=== PATIENT | female | born 1955 | race Caucasian/White ===

== ENCOUNTER 2019-07-24 10:33 | Day surgery (SDC) | payer MEDICARE, OTHER, SELFPAY ==
--- NOTE | 2019-07-24 | PATH_ITS ---
[facility] Accession Number: [id number] . 01 Material submitted: . PART A: colon - DESCENDING COLON POLYP PART B: colon - ASCENDING COLON POLYP PART C: colon - TRANSVERSE COLON POLYP PART D: rectosigmoid junction - RECTOSIGMOID COLON POLYP X3 . 01 Clinical history: . COLONOSCOPY . 02 Diagnosis: A. Descending Colon, Polyp: Tubular adenoma. . B. Ascending Colon, Polyp: Tubular adenoma. . C. Transverse Colon, Polyp: Hyperplastic polyp. . D. Rectosigmoid Colon, Polyps: Hyperplastic polyp x3. V 07/25/2019 1011 Local . 02 Electronically signed: . Gustavo Simental MD, PhD, Pathologist NPI- [id number] . 01 Gross description: . Part A: DESCENDING COLON POLYP: Received in formalin is 1 fragment(s) of ramírez, soft tissue measuring 0.5 x 0.4 x 0.3 cm submitted entirely in 1 cassette(s) Part B: ASCENDING COLON POLYP: Received in formalin is 1 fragment(s) of ramírez, soft tissue measuring 0.3 x 0.3 x 0.3 cm submitted entirely in 1 cassette(s) Part C: TRANSVERSE COLON POLYP: Received in formalin are 3 fragment(s) of ramírez, soft tissue measuring 0.1 x 0.1 x 0.1 cm to 0.2 x 0.1 x 0.1 cm submitted entirely in 1 cassette(s) Part D: RECTOSIGMOID COLON POLYP X3: Received in formalin are 3 fragment(s) of ramírez, soft tissue measuring 0.1 x 0.1 x 0.1 cm to 0.3 x 0.3 x 0.2 cm submitted entirely in 1 cassette(s) [place] [place]24/[place] 2233 Local . 02 Pathologist provided ICD-10: D12.2, D12.4, K63.5, K62.1 . 02 CPT . 153574, 703692, 436548, [id number] Performed at: 01 [facility] [address] [id number] MD Jorge Tovar MD Phone: [phone] Performed at: 02 [facility] [address] [place] [id number] MD Alicia Islas MD Phone: [phone]
--- NOTE | 2019-07-24 08:26 | PM.HP.1 ---
History of Present Illness History of Present Illness Date Patient Seen: 07/24/19 Chief complaint: 17384 COLONOSCOPY Narrative: Patient presented for colonoscopy. She does describe a family history of colon cancer in her father diagnosed at age 33. The patient describes personal history of colon polyps, last colonoscopy 5 years ago. Meds Home Medications and Allergies Home Medications Medication Instructions Recorded Confirmed Type Basaglar KwikPen U-100 Insulin 40 units SUBCUT BEDTIME 07/24/19 07/24/19 History atorvastatin 40 mg PO DAILY 07/24/19 07/24/19 History hydrochlorothiazide 25 mg PO DAILY 07/24/19 07/24/19 History lisinopril 10 mg PO DAILY 07/24/19 07/24/19 History potassium chloride [Klor-Con 10] 10 meq PO DAILY 07/24/19 07/24/19 History Allergies Allergy/AdvReac Type Severity Reaction Status Date / Time No Known Drug Allergies Allergy Verified 07/24/19 11:41 Review of Systems Review of Systems ROS Unobtainable: All systems reviewed & are unremarkable except as noted in HPI and below Exam Const General: cooperative, healthy appearing and comfortable Nutritional Appearance: obese Orientation: alert, awake and oriented x3 Resp Effort & Inspection: normal respiratory effort and able to speak in complete sentences Auscultation: clear to auscultation bilaterally Cardio Rate: regular rate Rhythm: regular rhythm Heart Sounds: S1 normal and S2 normal GI Palpation: soft and No tender Auscultation: normal bowel sounds Extrem Right lower extremity: no edema Left lower extremity: no edema Assessment & Plan Assessment & Plan narrative: 1. Screening colonoscopy at increased risk family history of colon cancer -father 2. Personal history of colon polyps Colonoscopy today, further recommendations to follow
[2019-07-24 11:46] VITALS: BP 121/71; PULSE 60; RESP 16; TEMP 36; O2SAT 99; BMI 31.8
[2019-07-24 12:01] VITALS: BMI 31.8
[2019-07-24] MEDS: SODIUM CHLORIDE 0.9% 1,000 ML 70 ML IV (12:02)
[2019-07-24] MEDS: fentaNYL 250 MCG/5 ML INJ IV (13:05)
[2019-07-24] MEDS: MIDAZOLAM 5 MG/5 ML VIAL IV (13:06)
[2019-07-24 13:15] VITALS: BP 117/60; PULSE 65; RESP 16; TEMP 36.3; O2SAT 99
--- NOTE | 2019-07-24 13:15 | PM.OP.ENDO ---
Operative Date/Time/Diagnoses Date of procedure: 07/24/19 Time of procedure: 12:45 Procedure Notes Procedure in detail: Surgeon: Najma Poon DO Procedure: Colonoscopy with polypectomy Preoperative diagnosis: 1. Personal history of colon polyps 2. Family history colon cancer -father dx 33 Postoperative diagnosis: 1. Ascending colon polyp 5 mm 2. Transverse colon polyp 2 mm 3. Descending colon polyp 5 mm 4. Rectosigmoid 3 colon polyps 2-3 mm in size 5. Internal hemorrhoids noted on retroflexion Medications: Conscious sedation using 5 mg IV of Midazolam and 150 mcg IV of Fentanyl Preanesthesia Assessment An H and P was performed/updated and the Px?s ASA class is 2. The procedure was discussed in detail with the patient. The potential risks and complications including infection, bleeding, missed lesions, perforation, need for surgery in case of perforation, prolonged hospital stay, and were explained. A brief question and answer period was allotted and once all questions were answered, informed consent was obtained. The patient was brought back to the procedure room and placed on standard monitoring. The patient?s vital signs were monitored continuously throughout the entire procedure. Prior to starting, a timeout was performed to confirm the patient?s identity, allergies, medications, and procedure. Procedure in detail The patient was placed in left lateral decubitus position and once adequate sedation was obtained a MARGARITA was performed. The digital rectal examination did not reveal any palpable lesions. The tip of the colonoscope was placed in the anal canal and advanced all the way to the cecum which was identified by the appendiceal orifice and the ileocecal valve. Colon was noted to be significantly tortuous and redundant, manual pressure, moving the patient to the supine position and stiffener were used to achieve visualization of the cecum. Careful examination of all gonzalez of the colon was performed with irrigation of any residual stool. 1. Ascending colon polyp 5 mm -removed with cold snare 2. Transverse colon polyp 2 mm -removed with Jumbo forceps 3. Descending colon polyp 5 mm -removed with cold snare 4. Rectosigmoid 3 colon polyps 2-3 mm in size -removed with Jumbo forceps 5. Internal hemorrhoids noted on retroflexion The patient tolerated the procedure well and will be brought back to the recovery area to be discharged once criteria are met. The prep was judged to be good/excellent and adequate to identify polyps less than 5 mm. The withdrawal time was 8min. The total physician intraservice time was 25min. Complications There were no complications and estimated blood loss was minimal. Recommendations: Resume previous diet Continue outPx medications Follow up pathology results Repeat colonoscopy based on pathology results 3-5 years An emergency contact number was given to the patient for any complications related to the procedure
[2019-07-24 13:28] VITALS: BP 114/71; PULSE 66; RESP 17; TEMP 36.4; O2SAT 100
== END 2019-07-24 13:46 | disposition home or self-care (01) ==
PROVIDERS: Visit Provider Student in an Organized Health Care Education/Training Program
PROC: 0DJD8ZZ Inspection of Lower Intestinal Tract, Via Natural or Artificial Opening Endoscopic (ICD-10-PCS; CPT 45378; principal; 2019-07-24 11:30)
DX: Z12.11 Encounter for screening for malignant neoplasm of colon (principal); Z86.010 Personal history of colon polyps; Z80.0 Family history of malignant neoplasm of digestive organs; K64.8 Other hemorrhoids; D12.4 Benign neoplasm of descending colon; D12.2 Benign neoplasm of ascending colon; K63.5 Polyp of colon; K62.1 Rectal polyp
CPT/HCPCS: 45385; 45380; J2250; J3010

== ENCOUNTER 2023-02-13 06:09 | Emergency (ER) | payer MEDICARE, OTHER, SELFPAY ==
[2023-02-13] VITALS (7 sets, daily range): BP systolic 142–175; BP diastolic 64–75; PULSE 64–99; RESP 18–24; TEMP 36.9; O2SAT 97–100; BMI 28.5
[2023-02-13] MEDS: ONDANSETRON 4 MG/2 ML INJ IV (06:41)
[2023-02-13] MEDS: SODIUM CHLORIDE 0.9% 1,000 ML 1000 ML IV ×2 (06:42→07:33)
[2023-02-13 06:43] LABS: Add Manual Diff / Slide Review NO; Basophils Absolute Auto 0 /uL (0-100); Basophils Percent Auto 0.3 % (0-2); Eosinophils Absolute Auto 0 /uL (0-450); Hematocrit 39.2 % (36-46); Hemoglobin 13.7 g/dL (12.0-16.0); Lymphocytes Absolute Auto 1200 /uL (1100-4500); Lymphocytes Percent Auto 8.3 % (25-40); Mean Corpuscular HGB Conc 34.8 % (30-36); Mean Corpuscular Hemoglobin 29.8 PG (26-34); Mean Corpuscular Volume 85.7 fL (80-100); Monocytes Absolute Auto 1000 /uL (0-900); Monocytes Percent Auto 7.4 % (3-14); Neutrophils Absolute Auto 11900 /uL (1500-7000); Platelet Count 251 X10^3/uL (150-400); Red Blood Cell Count 4.58 X10^6/uL (4.0-5.2); Red Cell Distribution Width 13.6 % (11.6-14.8); White Blood Cell Count 14.2 X10^3/uL (4.5-11.0)
--- NOTE | 2023-02-13 06:43 | ED_ITS ---
HPI - Abdominal Pain <DO Martin Wang Last Filed: 02/14/23 07:00> General Chief Complaint: Abdominal Pain Stated Complaint: dry heaving, dedydrated Time Seen by Provider: 02/13/23 06:38 Source: patient Mode of arrival: Ambulatory History of Present Illness HPI narrative: Patient is 67-year-old female history of insulin-dependent diabetes presenting today with 2 days of nausea vomiting. She reports it started about 2 days ago she is really been unable to keep anything down. She has some mild abdominal cr amping but no significant pain. No dizziness or lightheadedness. She reports that her sugars are elevated for her and today it is 178. She has generalized body aches fever and chills. No chest pain palpitations or shortness of breath. Related Data Home Medications Medication Instructions Recorded Confirmed Basaglar KwikPen U-100 Insulin 40 units SUBCUT BEDTIME 07/24/19 07/24/19 atorvastatin 40 mg tablet 40 mg PO DAILY 07/24/19 07/24/19 hydrochlorothiazide 25 mg tablet 25 mg PO DAILY 07/24/19 07/24/19 lisinopril 10 mg tablet 10 mg PO DAILY 07/24/19 07/24/19 potassium chloride 10 mEq 10 meq PO DAILY 07/24/19 07/24/19 tablet,extended release (Klor-Con) Previous Rx's Medication Instructions Recorded metoclopramide HCl 10 mg tablet 10 mg PO Q6H PRN nausea and 02/13/23 (Reglan) vomiting #14 tabs Allergies Allergy/AdvReac Type Severity Reaction Status Date / Time No Known Drug Allergies Allergy Verified 02/13/23 06:24 Review of Systems <DO Martin Wang Last Filed: 02/14/23 07:00> Review of Systems ROS Unobtainable: All systems reviewed & are unremarkable except as noted in HPI and below Patient History <DO Martin Wang Last Filed: 02/14/23 07:00> Social History household members: spouse Smoking Status: Never smoker Smoking Status: Never smoker alcohol intake frequency: 0-2 drinks per day Substance Use Type: does not use Exam <DO Martin Wang Last Filed: 02/14/23 07:00> Initial Vital Signs Initial Vital Signs: Vital Signs Temperature 98.4 F 02/13/23 06:20 Pulse Rate 74 02/13/23 06:20 Respiratory Rate 24 02/13/23 06:20 Blood Pressure 175/75 H 02/13/23 06:20 Pulse Oximetry 99 02/13/23 06:20 Oxygen Delivery Method Room Air 02/13/23 06:20 GENERAL: Alert 67-year-old female appears uncomfortable dry heaving and in no acute distress. HEENT: Head atraumatic,EOMI, pupils reactive, face symmetric, moist mucous membranes CARDIOVASCULAR: Regular rate and rhythm without murmurs, rubs or gallops. RESPIRATORY: Breath sounds equal bilaterally, no wheezes rales or rhonchi. ABDOMEN: Soft, no epigastric pain no right upper quadrant pain no guarding no re bound EXTREMITIES: Normal range of motion, no clubbing or edema. Neurovascularly intact NEUROLOGICAL: Alert and oriented x4.Normal gait and speech. SKIN: Warm, dry, no laceration, no petechiae, no rashes or lesions. <Samuel Arita DO - Last Filed: 02/13/23 09:09> Initial Vital Signs Initial Vital Signs: Vital Signs Temperature 98.4 F 02/13/23 06:20 Pulse Rate 74 02/13/23 06:20 Respiratory Rate 24 02/13/23 06:20 Blood Pressure 175/75 H 02/13/23 06:20 Pulse Oximetry 99 02/13/23 06:20 Oxygen Delivery Method Room Air 02/13/23 06:20 Course <Carolyn Gallardo, DO - Last Filed: 02/14/23 07:00> Orders Ordered: Discontinued Medications Sodium Chloride (Normal Saline 0.9%) 1,000 mls @ 1,000 mls/hr IV BOLUS ONE Stop: 02/13/23 07:37 Last Infusion: 02/13/23 07:18 Dose: 0 mls/hr Documented By: Admin: 02/13/23 06:42 Dose: 1,000 mls/hr Documented By: REZA Sodium Chloride (Normal Saline 0.9%) 1,000 mls @ 1,000 mls/hr IV BOLUS ONE Stop: 02/13/23 07:40 Last Infusion: 02/13/23 08:53 Dose: 0 mls/hr Documented By: Admin: 02/13/23 07:33 Dose: 1,000 mls/hr Documented By: DEBI Metoclopramide HCl (Metoclopramide 10 Mg/2 Ml Inj) 10 mg IV NOW ONE Stop: 02/13/23 07:26 Last Admin: 02/13/23 07:33 Dose: 10 mg Documented By: DEBI Ondansetron HCl (Ondansetron 4 Mg Odt) 4 mg PO NOW PRN PRN Reason: Nausea And Vomiting Ondansetron HCl (Ondansetron 4 Mg/2 Ml Inj) 4 mg IV NOW PRN PRN Reason: Nausea And Vomiting Last Admin: 02/13/23 06:41 Dose: 4 mg Documented By: REZA Pantoprazole Sodium (Pantoprazole 40 Mg Vial) 40 mg IV NOW ONE Stop: 02/13/23 06:43 Last Admin: 02/13/23 06:50 Dose: 40 mg Documented By: REZA Vital Signs Vital signs: Vital Signs - 8 hr 02/13/23 06:20 02/13/23 07:03 02/13/23 07:30 Temperature 98.4 F Pulse Rate 74 64 99 H Respiratory Rate 24 Blood Pressure 175/75 H Pulse Oximetry 99 99 100 Oxygen Delivery Method Room Air Room Air 02/13/23 08:00 Temperature Pulse Rate 67 Respiratory Rate Blood Pressure Pulse Oximetry 97 Oxygen Delivery Method <Samuel Arita DO - Last Filed: 02/13/23 09:09> Orders Ordered: Discontinued Medications Sodium Chloride (Normal Saline 0.9%) 1,000 mls @ 1,000 mls/hr IV BOLUS ONE Stop: 02/13/23 07:37 Last Infusion: 02/13/23 07:18 Dose: 0 mls/hr Documented By: Admin: 02/13/23 06:42 Dose: 1,000 mls/hr Documented By: REZA Sodium Chloride (Normal Saline 0.9%) 1,000 mls @ 1,000 mls/hr IV BOLUS ONE Stop: 02/13/23 07:40 Last Infusion: 02/13/23 08:53 Dose: 0 mls/hr Documented By: Admin: 02/13/23 07:33 Dose: 1,000 mls/hr Documented By: DEBI Metoclopramide HCl (Metoclopramide 10 Mg/2 Ml Inj) 10 mg IV NOW ONE Stop: 02/13/23 07:26 Last Admin: 02/13/23 07:33 Dose: 10 mg Documented By: DEBI Ondansetron HCl (Ondansetron 4 Mg Odt) 4 mg PO NOW PRN PRN Reason: Nausea And Vomiting Ondansetron HCl (Ondansetron 4 Mg/2 Ml Inj) 4 mg IV NOW PRN PRN Reason: Nausea And Vomiting Last Admin: 02/13/23 06:41 Dose: 4 mg Documented By: REZA Pantoprazole Sodium (Pantoprazole 40 Mg Vial) 40 mg IV NOW ONE Stop: 02/13/23 06:43 Last Admin: 02/13/23 06:50 Dose: 40 mg Documented By: REZA Vital Signs Vital signs: Vital Signs - 8 hr 02/13/23 06:20 02/13/23 07:03 02/13/23 07:30 Temperature 98.4 F Pulse Rate 74 64 99 H Respiratory Rate 24 Blood Pressure 175/75 H Pulse Oximetry 99 99 100 Oxygen Delivery Method Room Air Room Air 02/13/23 08:00 Temperature Pulse Rate 67 Respiratory Rate Blood Pressure Pulse Oximetry 97 Oxygen Delivery Method MDM - Abdominal Pain <Carolyn Gallardo DO - Last Filed: 02/14/23 07:00> Lab Data 02/13/23 06:28 02/13/23 06:28 Labs: Lab Results 02/13/23 02/13/23 02/13/23 Range/Units 06:28 06:28 06:28 WBC 14.2 H (4.5-11.0) X10^3/uL RBC 4.58 (4.0-5.2) X10^6/uL Hgb 13.7 (12.0-16.0) g/dL Hct 39.2 (36-46) % MCV 85.7 (80-100) fL MCH 29.8 (26-34) PG MCHC 34.8 (30-36) % RDW 13.6 (11.6-14.8) % Plt Count 251 (150-400) X10^3/uL Neut % (Auto) 84.0 H (50-75) % Lymph % (Auto) 8.3 L (25-40) % [place] % (Auto) 7.4 (3-14) % Eos % (Auto) 0.0 L (2-4) % Baso % (Auto) 0.3 (0-2) % Neut # (Auto) 29038 H (7386-2504) /uL Lymph # (Auto) 1200 (6677-1056) /uL [place] # (Auto) 1000 H (0-900) /uL Eos # (Auto) 0 (0-450) /uL Baso # (Auto) 0 (0-100) /uL Sodium 134 L (137-145) mmol/L Potassium 3.0 L (3.4-5.1) mmol/L Chloride 92 L (98-107) mmol/L Carbon Dioxide 30 (22-32) mmol/L BUN 31 H (7-17) mg/dL Creatinine 1.44 H (0.52-1.04) mg/dL Estimated GFR 39 L (>60) mL/min BUN/Creatinine Ratio 21.5 (6-22) Glucose 177 H (80-110) mg/dL Lactate 1.5 (0.7-2.1) mmol/L Calcium 10.4 H (8.4-10.2) mg/dL Total Bilirubin 1.2 (0.2-1.3) mg/dL AST 29 (14-36) IU/L ALT 22 (<35) IU/L Alkaline Phosphatase 74 (38-126) U/L Total Protein 7.9 (6.3-8.2) g/dL Albumin 4.5 (3.5-5.0) g/dL Globulin 3.4 (1.7-4.1) g/dL Albumin/Globulin Ratio 1.3 (1.0-2.8) Lipase 184 (23-300) U/L [facility] Narrative Medical decision making narrative: Patient 67-year-old female insulin-dependent diabetes presenting today with nausea vomiting. Did initial evaluation blood work pending. Patient signed out to Dr. Arita for further disposition and evaluation Patient with some improvement but not very much after the Zofran and a L fluids but she states she feels much better after the Reglan and a 2nd L of fluids. Labs are relatively unremarkable and most likely related to her vomiting. There was no indication for antibiotics. No indication for further radiologic studies. Patient is tolerating oral intake. Will discharge home with a prescription for Reglan. She was given return precautions. She expressed understanding and agreement. <Samuel Arita, DO - Last Filed: 02/13/23 09:09> Lab Data Attestation: I reviewed the patient's lab results. Labs: Lab Results 02/13/23 02/13/23 02/13/23 Range/Units 06:28 06:28 06:28 WBC 14.2 H (4.5-11.0) X10^3/uL RBC 4.58 (4.0-5.2) X10^6/uL Hgb 13.7 (12.0-16.0) g/dL Hct 39.2 (36-46) % MCV 85.7 (80-100) fL MCH 29.8 (26-34) PG MCHC 34.8 (30-36) % RDW 13.6 (11.6-14.8) % Plt Count 251 (150-400) X10^3/uL Neut % (Auto) 84.0 H (50-75) % Lymph % (Auto) 8.3 L (25-40) % [place] % (Auto) 7.4 (3-14) % Eos % (Auto) 0.0 L (2-4) % Baso % (Auto) 0.3 (0-2) % Neut # (Auto) 27246 H (8151-9869) /uL Lymph # (Auto) 1200 (7542-3404) /uL [place] # (Auto) 1000 H (0-900) /uL Eos # (Auto) 0 (0-450) /uL Baso # (Auto) 0 (0-100) /uL Sodium 134 L (137-145) mmol/L Potassium 3.0 L (3.4-5.1) mmol/L Chloride 92 L (98-107) mmol/L Carbon Dioxide 30 (22-32) mmol/L BUN 31 H (7-17) mg/dL Creatinine 1.44 H (0.52-1.04) mg/dL Estimated GFR 39 L (>60) mL/min BUN/Creatinine Ratio 21.5 (6-22) Glucose 177 H (80-110) mg/dL Lactate 1.5 (0.7-2.1) mmol/L Calcium 10.4 H (8.4-10.2) mg/dL Total Bilirubin 1.2 (0.2-1.3) mg/dL AST 29 (14-36) IU/L ALT 22 (<35) IU/L Alkaline Phosphatase 74 (38-126) U/L Total Protein 7.9 (6.3-8.2) g/dL Albumin 4.5 (3.5-5.0) g/dL Globulin 3.4 (1.7-4.1) g/dL Albumin/Globulin Ratio 1.3 (1.0-2.8) Lipase 184 (23-300) U/L ECG Data Attestation: I personally reviewed and interpreted this ECG as follows: Interpretation: Sinus rhythm Ventricular rate is 62 on normal axis Right bundle-branch block Nonspecific ST T wave changes MDM Narrative Medical decision making narrative: Patient with some improvement but not very much after the Zofran and a L fluids but she states she feels much better after the Reglan and a 2nd L of fluids. Labs are relatively unremarkable and most likely related to her vomiting. There was no indication for antibiotics. No indication for further radiologic studies. Patient is tolerating oral intake. Will discharge home with a prescription for Reglan. She was given return precautions. She expressed understanding and agreement. Discharge Plan Departure Patient Disposition: Home Clinical Impression: Nausea and vomiting Instructions: Nausea and Vomiting-Adult Activity Restrictions/Additional Instructions: Continue to take all of your medications as directed. The nausea medication was sent to [facility] per your request. You can use it as needed. I also recommend that you eat a bland diet. Increase your fluid intake by drinking small amounts more frequently. Return to the emergency department for new or worsening symptoms. Prescriptions: New metoclopramide HCl [Reglan] 10 mg tablet 10 mg PO Q6H PRN (Reason: nausea and vomiting) Qty: 14 0RF No Action atorvastatin 40 mg Tablet 40 mg PO DAILY potassium chloride [Klor-Con 10] 10 mEq Tablet Extended Release 10 meq PO DAILY lisinopril 10 mg Tablet 10 mg PO DAILY hydrochlorothiazide 25 mg Tablet 25 mg PO DAILY Ricardo Garcia U-100 Insulin 40 units 40 units subcut BEDTIME Stand Alone Forms: Patient Portal/API
[2023-02-13] MEDS: PANTOPRAZOLE 40 MG VIAL IV (06:50)
[2023-02-13 07:04] LABS: Alanine Aminotransferase 22 IU/L (<35); Albumin 4.5 g/dL (3.5-5.0); Albumin Globulin Ratio 1.3 (1.0-2.8); Alkaline Phosphatase 74 U/L (38-126); Aspartate Aminotransferase 29 IU/L (14-36); BUN Creatinine Ratio 21.5 (6-22); Bilirubin Total 1.2 mg/dL (0.2-1.3); Blood Urea Nitrogen 31 mg/dL (7-17); Calcium 10.4 mg/dL (8.4-10.2); Carbon Dioxide 30 mmol/L (22-32); Chloride 92 mmol/L (98-107); Estimated Glomerular Filt Rate 39 mL/min (>60); Globulin 3.4 g/dL (1.7-4.1); Glucose 177 mg/dL (80-110); HEMOLYSIS < 15 (0-50); Lipase 184 U/L (23-300); Sodium 134 mmol/L (137-145); Total Protein 7.9 g/dL (6.3-8.2)
[2023-02-13 07:12] LABS: Lactate (Lactic Acid) 1.5 mmol/L (0.7-2.1)
[2023-02-13] MEDS: METOCLOPRAMIDE 10 MG/2 ML INJ IV (07:33)
== END 2023-02-13 09:22 | disposition home or self-care (01) ==
PROVIDERS: Emergency Medicine; Emergency Provider Emergency Medicine
DX: R11.2 Nausea with vomiting, unspecified (principal); R10.9 Unspecified abdominal pain
CPT/HCPCS: 36415; 80053; 83605; 83690; 85025; 93005; 93010; 99284; C9113; J2405; J2765

== ENCOUNTER 2023-02-14 06:50 | Emergency (ER) | payer MEDICARE, OTHER, SELFPAY ==
[2023-02-14] VITALS (16 sets, daily range): BP systolic 142–202; BP diastolic 57–109; PULSE 57–69; RESP 18–22; TEMP 37.3; O2SAT 94–99; BMI 27.6
--- NOTE | 2023-02-14 07:16 | ED_ITS ---
HPI - Nausea/Vomiting/Diarrhea General Chief complaint: Nausea/Vomiting/Diarrhea Stated complaint: dehydration, vomiting Time Seen by Provider: 02/14/23 06:58 Source: patient Mode of arrival: Wheelchair History of Present Illness HPI Narrative: Patient is a 67-year-old female history of hypertension insulin-dependent diabetes hyperlipidemia presenting for the 2nd day in a row with nausea vomiting. She reports over the last 3-4 days she is had ongoing nausea vomiting unable to keep anything down. She was seen evaluated here yesterday diagnosed with gastroenteritis sent with antinausea medication he returns today it. She reports she just can not keep anything down despite the medication. He feels a little dizzy lightheaded. She is no abdominal pain no chest pain or shortness of breath. Related Data Home Medications Medication Instructions Recorded Confirmed Basaglar KwikPen U-100 Insulin 40 units SUBCUT BEDTIME 07/24/19 07/24/19 atorvastatin 40 mg tablet 40 mg PO DAILY 07/24/19 02/14/23 hydrochlorothiazide 25 mg tablet 25 mg PO DAILY 07/24/19 02/14/23 lisinopril 10 mg tablet 10 mg PO DAILY 07/24/19 02/14/23 potassium chloride 10 mEq 10 meq PO DAILY 07/24/19 02/14/23 tablet,extended release (Klor-Con) Previous Rx's Medication Instructions Recorded metoclopramide HCl 10 mg tablet 10 mg PO Q6H PRN nausea and 02/13/23 (Reglan) vomiting #14 tabs ondansetron 4 mg disintegrating 4 mg PO Q8H PRN nausea and 02/14/23 tablet vomiting #10 tabs Allergies Allergy/AdvReac Type Severity Reaction Status Date / Time No Known Drug Allergies Allergy Verified 02/13/23 06:24 Review of Systems Review of Systems ROS Unobtainable: All systems reviewed & are unremarkable except as noted in HPI and below Patient History Social History household members: spouse Smoking Status: Never smoker Smoking Status: Never smoker alcohol intake frequency: 0-2 drinks per day Substance Use Type: does not use Exam Initial Vital Signs Initial Vital Signs: Vital Signs Temperature 99.1 F 02/14/23 06:59 Pulse Rate 66 02/14/23 06:59 Respiratory Rate 18 02/14/23 06:59 Blood Pressure 196/87 H 02/14/23 06:59 Pulse Oximetry 94 02/14/23 06:59 Oxygen Delivery Method Room Air 02/14/23 06:59 GENERAL: Alert 67-year-old female appears to not feel well and in no acute distress. HEENT: Head atraumatic,EOMI, pupils reactive, face symmetric, moist mucous membranes CARDIOVASCULAR: Regular rate and rhythm without murmurs, rubs or gallops. RESPIRATORY: Breath sounds equal bilaterally, no wheezes rales or rhonchi. ABDOMEN: Soft, nontender. Normoactive bowel sounds all 4 quadrants. No guarding or rebound. EXTREMITIES: Normal range of motion, no clubbing or edema. Neurovascularly intact NEUROLOGICAL: Alert and oriented x4.Normal gait and speech. SKIN: Warm, dry, no laceration, no petechiae, no rashes or lesions. Course Orders Ordered: ED Orders 02/14/23 06:55 CBC Auto Diff [Complete Blood Count AUTO DIFF] Stat CMP [Comprehensive Metabolic Panel] Stat Lactate (Lactic Acid) Stat Lipase Stat Troponin & CK Cardiac Panel Stat 02/14/23 07:08 EKG-12 Lead Stat 02/14/23 09:05 Trop I [Troponin I] Stat 02/14/23 09:31 EKG-12 Lead Routine 02/14/23 10:11 Urine Culture Stat Urine Microscopic Stat Discontinued Medications Hydrochlorothiazide (Hydrochlorothiazide 25 Mg Tablet) 25 mg PO NOW ONE Stop: 02/14/23 09:21 Last Admin: 02/14/23 09:25 Dose: 25 mg Documented By: RB Sodium Chloride (Normal Saline 0.9%) 1,000 mls @ 1,000 mls/hr IV BOLUS ONE Stop: 02/14/23 08:07 Last Infusion: 02/14/23 08:34 Dose: 0 mls/hr Documented By: Admin: 02/14/23 07:17 Dose: 1,000 mls/hr Documented By: OUSMANE Sodium Chloride (Normal Saline 0.9%) 1,000 mls @ 1,000 mls/hr IV BOLUS ONE Stop: 02/14/23 09:33 Last Infusion: 02/14/23 09:35 Dose: 0 mls/hr Documented By: Admin: 02/14/23 08:46 Dose: 1,000 mls/hr Documented By: RB Lisinopril (Lisinopril 10 Mg Tablet) 10 mg PO NOW ONE Stop: 02/14/23 09:21 Last Admin: 02/14/23 09:26 Dose: 10 mg Documented By: JAMIA Ondansetron HCl (Ondansetron 4 Mg/2 Ml Inj) 4 mg IV NOW ONE Stop: 02/14/23 07:09 Last Admin: 02/14/23 07:17 Dose: 4 mg Documented By: OUSMANE Ondansetron HCl (Ondansetron 4 Mg/2 Ml Inj) 4 mg IV NOW ONE Stop: 02/14/23 08:43 Last Admin: 02/14/23 08:46 Dose: 4 mg Documented By: JAMIA Pantoprazole Sodium (Pantoprazole 40 Mg Vial) 40 mg IV NOW ONE Stop: 02/14/23 07:09 Last Admin: 02/14/23 07:18 Dose: 40 mg Documented By: OUSMANE Vital Signs Vital signs: Vital Signs - 8 hr 02/14/23 06:59 02/14/23 07:03 02/14/23 07:30 Temperature 99.1 F Pulse Rate 66 61 59 L Respiratory Rate 18 19 Blood Pressure 196/87 H Pulse Oximetry 94 97 97 Oxygen Delivery Method Room Air 02/14/23 08:00 02/14/23 08:15 02/14/23 08:15 Temperature Pulse Rate 64 58 L Respiratory Rate 19 19 Blood Pressure 197/79 H Pulse Oximetry 98 97 Oxygen Delivery Method 02/14/23 08:30 02/14/23 08:30 02/14/23 08:45 Temperature Pulse Rate 62 Respiratory Rate 21 Blood Pressure 176/79 H 177/78 H Pulse Oximetry 97 Oxygen Delivery Method 02/14/23 08:45 02/14/23 09:00 02/14/23 09:01 Temperature Pulse Rate 61 68 Respiratory Rate 20 Blood Pressure 142/109 H Pulse Oximetry 98 98 Oxygen Delivery Method 02/14/23 09:01 02/14/23 09:16 02/14/23 09:16 Temperature Pulse Rate 69 60 Respiratory Rate 20 19 Blood Pressure 202/82 H Pulse Oximetry 99 98 Oxygen Delivery Method 02/14/23 09:26 02/14/23 09:30 02/14/23 09:31 Temperature Pulse Rate 62 62 61 Respiratory Rate 22 20 Blood Pressure 202/82 H Pulse Oximetry 98 97 Oxygen Delivery Method 02/14/23 09:31 02/14/23 09:45 02/14/23 09:45 Temperature Pulse Rate 61 Respiratory Rate 21 Blood Pressure 192/82 H 184/73 H Pulse Oximetry 97 Oxygen Delivery Method 02/14/23 10:00 02/14/23 10:00 02/14/23 11:11 Temperature Pulse Rate 57 L 59 L Respiratory Rate 18 20 Blood Pressure 168/57 H 162/58 H Pulse Oximetry 96 98 Oxygen Delivery Method Room Air MDM - Nausea/Vomiting/Diarrhea Lab Data 02/14/23 06:55 02/14/23 06:55 Labs: Lab Results 02/14/23 02/14/23 02/14/23 Range/Units 06:55 06:55 06:55 WBC 8.9 (4.5-11.0) X10^3/uL RBC 4.21 (4.0-5.2) X10^6/uL Hgb 12.8 (12.0-16.0) g/dL Hct 36.4 (36-46) % MCV 86.5 (80-100) fL MCH 30.3 (26-34) PG MCHC 35.1 (30-36) % RDW 13.5 (11.6-14.8) % Plt Count 212 (150-400) X10^3/uL Neut % (Auto) 70.6 (50-75) % Lymph % (Auto) 19.2 L (25-40) % [place] % (Auto) 9.9 (3-14) % Eos % (Auto) 0.0 L (2-4) % Baso % (Auto) 0.3 (0-2) % Neut # (Auto) 6300 (9456-2833) /uL Lymph # (Auto) 1700 (8377-2975) /uL [place] # (Auto) 900 (0-900) /uL Eos # (Auto) 0 (0-450) /uL Baso # (Auto) 0 (0-100) /uL Sodium (137-145) mmol/L Potassium (3.4-5.1) mmol/L Chloride (98-107) mmol/L Carbon Dioxide (22-32) mmol/L BUN (7-17) mg/dL Creatinine (0.52-1.04) mg/dL Estimated GFR (>60) mL/min BUN/Creatinine Ratio (6-22) Glucose (80-110) mg/dL Lactate 1.3 (0.7-2.1) mmol/L Calcium (8.4-10.2) mg/dL Total Bilirubin (0.2-1.3) mg/dL AST (14-36) IU/L ALT (<35) IU/L Alkaline Phosphatase (38-126) U/L Total Creatine Kinase 260 H (30-135) U/L CK-MB (CK-2) TNP CK-MB (CK-2) Rel Index TNP Troponin I 0.039 H (0.01-0.034) ng/mL Total Protein (6.3-8.2) g/dL Albumin (3.5-5.0) g/dL Globulin (1.7-4.1) g/dL Albumin/Globulin Ratio (1.0-2.8) Lipase (23-300) U/L Urine RBC (0-5/HPF) Urine WBC (0-5/HPF) Ur Squamous Epith Cells (0-5/HPF) Urine Bacteria (None) Ur Culture Indicated? 02/14/23 02/14/23 02/14/23 Range/Units 06:55 09:05 10:11 WBC (4.5-11.0) X10^3/uL RBC (4.0-5.2) X10^6/uL Hgb (12.0-16.0) g/dL Hct (36-46) % MCV (80-100) fL MCH (26-34) PG MCHC (30-36) % RDW (11.6-14.8) % Plt Count (150-400) X10^3/uL Neut % (Auto) (50-75) % Lymph % (Auto) (25-40) % [place] % (Auto) (3-14) % Eos % (Auto) (2-4) % Baso % (Auto) (0-2) % Neut # (Auto) (6395-6800) /uL Lymph # (Auto) (8241-4170) /uL [place] # (Auto) (0-900) /uL Eos # (Auto) (0-450) /uL Baso # (Auto) (0-100) /uL Sodium 134 L (137-145) mmol/L Potassium 3.2 L (3.4-5.1) mmol/L Chloride 98 (98-107) mmol/L Carbon Dioxide 27 (22-32) mmol/L BUN 26 H (7-17) mg/dL Creatinine 1.30 H (0.52-1.04) mg/dL Estimated GFR 45 L (>60) mL/min BUN/Creatinine Ratio 20.0 (6-22) Glucose 148 H (80-110) mg/dL Lactate (0.7-2.1) mmol/L Calcium 9.0 (8.4-10.2) mg/dL Total Bilirubin 1.0 (0.2-1.3) mg/dL AST 28 (14-36) IU/L ALT 20 (<35) IU/L Alkaline Phosphatase 62 (38-126) U/L Total Creatine Kinase (30-135) U/L CK-MB (CK-2) CK-MB (CK-2) Rel Index Troponin I 0.034 (0.01-0.034) ng/mL Total Protein 6.7 (6.3-8.2) g/dL Albumin 4.0 (3.5-5.0) g/dL Globulin 2.7 (1.7-4.1) g/dL Albumin/Globulin Ratio 1.5 (1.0-2.8) Lipase 235 (23-300) U/L Urine RBC 0-1/hpf (0-5/HPF) Urine WBC 1-5/hpf (0-5/HPF) Ur Squamous Epith Cells 0-1 /hpf (0-5/HPF) Urine Bacteria Occasional (0-1) (None) Ur Culture Indicated? Specimen cultured Urine Dip Bedside Urine Glucose 100 mg/dl Bedside Urine Bilirubin - Negative Bedside Urine Ketone - Negative Urine Specific [place] 1.015 Bedside Urine Occult Blood +/- Bedside Urine pH 6.5 Bedside Urine Protein - Negative Bedside Urine Urobilinogen - Negative Bedside Urine Nitrite - Negative Bedside Urine Leukocytes + 70 Esterase ECG Data Interpretation: Normal sinus rhythm rate 59 [place] interval 146 QRS 140 QTC 506 right bundle-branch block noted T-wave inversions in precordial leads similar to previous EKG yesterday no ST elevations or depressions EKG 2. Sinus rhythm rate 60 no changes from prior MDM Narrative Medical decision making narrative: Patient 67-year-old female presents today with ongoing nausea vomiting. Seen evaluated yesterday for the same. Vazquez was not working for her at home. Blood work today shows overall improvement no leukocytosis improved kidney function no significant electrolyte abnormalities. She is given IV fluids Reglan Zofran and Protonix today she has not vomited in the ED after multiple hours. She has not been able to keep down her hypertension medications but was given them here in the ED and they have stayed down. Blood pressure is elevated but improved after her medications. Troponin initially was indeterminate but improved after a repeat. She is no EKG changes she is a consistent right bundle-branch block. Discussion on conservative treatment will add Zofran. Both and patient understand. Abdomen is really soft and benign no need for imaging at this time. Discharge Plan Departure Patient Disposition: Home Clinical Impression: Gastroenteritis Instructions: DI for Viral Gastroenteritis -- Adult Activity Restrictions/Additional Instructions: *You have been diagnosed with gastroenteritis *What to do: Increase fluid intake as tolerated *Continue to take medications as directed Zofran 4 mg every 8 hours if needed for nausea or vomiting May also use Reglan as previously prescribed *Follow up with your primary care provider in 2-3 days or call [phone] *Return to ER if you should have inability to keep down fluids, increasing pain dizziness lightheadedness or any new, worsening or concerning symptoms Prescriptions: New ondansetron 4 mg tablet,disintegrating 4 mg PO Q8H PRN (Reason: nausea and vomiting) Qty: 10 0RF No Action metoclopramide HCl [Reglan] 10 mg tablet 10 mg PO Q6H PRN (Reason: nausea and vomiting) Qty: 14 0RF atorvastatin 40 mg Tablet 40 mg PO DAILY potassium chloride [Klor-Con 10] 10 mEq Tablet Extended Release 10 meq PO DAILY lisinopril 10 mg Tablet 10 mg PO DAILY hydrochlorothiazide 25 mg Tablet 25 mg PO DAILY Unrulyaglruperto Garcia U-100 Insulin 40 units 40 units subcut BEDTIME Stand Alone Forms: Patient Portal/API
[2023-02-14] MEDS: SODIUM CHLORIDE 0.9% 1,000 ML 1000 ML IV ×2 (07:17→08:46)
[2023-02-14] MEDS: ONDANSETRON 4 MG/2 ML INJ IV ×2 (07:17→08:46)
[2023-02-14] MEDS: PANTOPRAZOLE 40 MG VIAL IV (07:18)
[2023-02-14 07:22] LABS: Lactate (Lactic Acid) 1.3 mmol/L (0.7-2.1)
[2023-02-14 07:23] LABS: Creatine Kinase 260 U/L (30-135)
[2023-02-14 07:34] LABS: Troponin I 0.039 ng/mL (0.01-0.034)
[2023-02-14 08:12] LABS: Alanine Aminotransferase 20 IU/L (<35); Albumin Globulin Ratio 1.5 (1.0-2.8); Alkaline Phosphatase 62 U/L (38-126); Aspartate Aminotransferase 28 IU/L (14-36); Blood Urea Nitrogen 26 mg/dL (7-17); Carbon Dioxide 27 mmol/L (22-32); Chloride 98 mmol/L (98-107); Estimated Glomerular Filt Rate 45 mL/min (>60); Globulin 2.7 g/dL (1.7-4.1); Glucose 148 mg/dL (80-110); HEMOLYSIS < 15 (0-50); Lipase 235 U/L (23-300); Potassium 3.2 mmol/L (3.4-5.1); Sodium 134 mmol/L (137-145); Total Protein 6.7 g/dL (6.3-8.2)
[2023-02-14 08:13] LABS: Add Manual Diff / Slide Review NO; Basophils Absolute Auto 0 /uL (0-100); Basophils Percent Auto 0.3 % (0-2); Eosinophils Absolute Auto 0 /uL (0-450); Hematocrit 36.4 % (36-46); Hemoglobin 12.8 g/dL (12.0-16.0); Lymphocytes Absolute Auto 1700 /uL (1100-4500); Lymphocytes Percent Auto 19.2 % (25-40); Mean Corpuscular HGB Conc 35.1 % (30-36); Mean Corpuscular Hemoglobin 30.3 PG (26-34); Mean Corpuscular Volume 86.5 fL (80-100); Monocytes Absolute Auto 900 /uL (0-900); Monocytes Percent Auto 9.9 % (3-14); Neutrophils Absolute Auto 6300 /uL (1500-7000); Neutrophils Percent Auto 70.6 % (50-75); Platelet Count 212 X10^3/uL (150-400); Red Blood Cell Count 4.21 X10^6/uL (4.0-5.2); Red Cell Distribution Width 13.5 % (11.6-14.8); White Blood Cell Count 8.9 X10^3/uL (4.5-11.0)
[2023-02-14] MEDS: hydroCHLOROthiazide 25 MG TABLET PO (09:25)
[2023-02-14] MEDS: lisinopriL 10 MG TABLET PO (09:26)
[2023-02-14 09:44] LABS: Troponin I 0.034 ng/mL (0.01-0.034)
--- NOTE | 2023-02-14 10:14 | PC.NURSE ---
Patient ambulated to restroom without assistance. Patient provided a urine sample while there. Patient continues to be able to shallow water without vomiting.
[2023-02-14 10:40] LABS: RBC Urine 0-1/HPF (0-5/HPF)
[2023-02-14 10:41] LABS: Bacteria Urine Occasional (0-1); Culture Indicated Urine Specimen Cultured; Squamous Epithelial Cell Urine 0-1 /HPF (0-5/HPF); WBC Urine 1-5/HPF (0-5/HPF)
== END 2023-02-14 11:15 | disposition home or self-care (01) ==
PROVIDERS: Emergency Provider Emergency Medicine
DX: K52.9 Noninfective gastroenteritis and colitis, unspecified (principal)
CPT/HCPCS: 36415; 80053; 81003; 81015; 82550; 83605; 83690; 84484; 85025; 87077; 87086; 87186; 93005; 93010; 99284; C9113; J2405

== ENCOUNTER 2023-02-16 06:05 | Inpatient (IN) | payer MEDICARE, OTHER, SELFPAY ==
[2023-02-16] VITALS (20 sets, daily range): BP systolic 135–213; BP diastolic 58–89; PULSE 54–86; RESP 16–28; TEMP 36.7–37.1; O2SAT 95–100; BMI 28.5
[2023-02-16] MEDS: PANTOPRAZOLE 40 MG VIAL IV (06:30)
[2023-02-16] MEDS: ONDANSETRON 4 MG/2 ML INJ IV ×6 (06:30→21:29)
[2023-02-16] MEDS: SODIUM CHLORIDE 0.9% 1,000 ML 1000 ML IV ×2 (06:30→07:36)
[2023-02-16 06:33] LABS: Add Manual Diff / Slide Review NO; Basophils Absolute Auto 0 /uL (0-100); Basophils Percent Auto 0.4 % (0-2); Eosinophils Absolute Auto 0 /uL (0-450); Eosinophils Percent Auto 0.1 % (2-4); Hematocrit 41.3 % (36-46); Hemoglobin 14.6 g/dL (12.0-16.0); Lymphocytes Absolute Auto 1600 /uL (1100-4500); Lymphocytes Percent Auto 17.2 % (25-40); Mean Corpuscular HGB Conc 35.3 % (30-36); Mean Corpuscular Hemoglobin 30.1 PG (26-34); Mean Corpuscular Volume 85.1 fL (80-100); Monocytes Absolute Auto 800 /uL (0-900); Monocytes Percent Auto 8.5 % (3-14); Neutrophils Absolute Auto 6800 /uL (1500-7000); Neutrophils Percent Auto 73.8 % (50-75); Platelet Count 233 X10^3/uL (150-400); Red Blood Cell Count 4.85 X10^6/uL (4.0-5.2); Red Cell Distribution Width 13.4 % (11.6-14.8); White Blood Cell Count 9.2 X10^3/uL (4.5-11.0)
[2023-02-16 06:39] LABS: PCO2 VBG 38.5 mmHg (45-50); PO2 VBG 37 mmHg (35-45); pH VBG 7.47 (7.33-7.43)
[2023-02-16 06:40] LABS: HCO3 VBG 28 mmol/L (24-28); Oxygen Saturation VBG 74 % (70-75); Total CO2 VBG 29 mmol/L (24-29)
[2023-02-16 06:41] LABS: Fractionated Inspired Oxygen 21
[2023-02-16 06:58] LABS: Alanine Aminotransferase 20 IU/L (<35); Albumin 4.3 g/dL (3.5-5.0); Albumin Globulin Ratio 1.5 (1.0-2.8); Alkaline Phosphatase 65 U/L (38-126); Aspartate Aminotransferase 28 IU/L (14-36); BUN Creatinine Ratio 16.8 (6-22); Bilirubin Total 1.1 mg/dL (0.2-1.3); Blood Urea Nitrogen 23 mg/dL (7-17); Calcium 9.8 mg/dL (8.4-10.2); Carbon Dioxide 25 mmol/L (22-32); Chloride 96 mmol/L (98-107); Estimated Glomerular Filt Rate 42 mL/min (>60); Globulin 2.9 g/dL (1.7-4.1); Glucose 106 mg/dL (80-110); Lipase 261 U/L (23-300); Potassium 3.2 mmol/L (3.4-5.1); Sodium 133 mmol/L (137-145); Total Protein 7.2 g/dL (6.3-8.2)
[2023-02-16 07:20] LABS: HEMOLYSIS 21 (0-50); Ketones (Beta-Hydroxybutyrate) 0.73 mmol/L (<0.27)
--- NOTE | 2023-02-16 07:22 | ED_ITS ---
HPI - Nausea/Vomiting/Diarrhea General Chief complaint: Nausea/Vomiting/Diarrhea Stated complaint: v/d/n Time Seen by Provider: 02/16/23 06:08 Source: patient Mode of arrival: Ambulatory History of Present Illness HPI Narrative: Patient is a 67-year-old female history of insulin-dependent diabetes hypertension hyperlipidemia presenting for the 3rd time this week for nausea vomiting and now diarrhea. She is been sent home each time with Keanu and Vazquez. She is unable to keep fluids down she can not take her blood pressure medication. She previously which is having nausea vomiting but now is having diarrhea as well. She has crampy gurgly feeling in her stomach but no obvious tenderness. Generally feeling weak. Related Data Home Medications Medication Instructions Recorded Confirmed Basaglar KwikPen U-100 Insulin 40 units SUBCUT BEDTIME 07/24/19 07/24/19 atorvastatin 40 mg tablet 40 mg PO DAILY 07/24/19 02/14/23 hydrochlorothiazide 25 mg tablet 25 mg PO DAILY 07/24/19 02/14/23 lisinopril 10 mg tablet 10 mg PO DAILY 07/24/19 02/14/23 potassium chloride 10 mEq 10 meq PO DAILY 07/24/19 02/14/23 tablet,extended release (Klor-Con) Previous Rx's Medication Instructions Recorded metoclopramide HCl 10 mg tablet 10 mg PO Q6H PRN nausea and 02/13/23 (Reglan) vomiting #14 tabs ondansetron 4 mg disintegrating 4 mg PO Q8H PRN nausea and 02/14/23 tablet vomiting #10 tabs Allergies Allergy/AdvReac Type Severity Reaction Status Date / Time No Known Drug Allergies Allergy Verified 02/13/23 06:24 Review of Systems Review of Systems ROS Unobtainable: All systems reviewed & are unremarkable except as noted in HPI and below Patient History Social History household members: spouse Smoking Status: Never smoker Smoking Status: Never smoker alcohol intake frequency: 0-2 drinks per day Substance Use Type: does not use Exam Initial Vital Signs Initial Vital Signs: Vital Signs Pulse Rate 60 02/16/23 06:19 Respiratory Rate 16 02/16/23 06:19 Blood Pressure 196/86 H 02/16/23 06:19 Pulse Oximetry 100 02/16/23 06:19 Oxygen Delivery Method Room Air 02/16/23 06:19 GENERAL: Alert weeks 57-year-old female HEENT: Head atraumatic,EOMI, pupils reactive, face symmetric, dry mucous membranes CARDIOVASCULAR: Regular rate and rhythm without murmurs, rubs or gallops. RESPIRATORY: Breath sounds equal bilaterally, no wheezes rales or rhonchi. ABDOMEN: Soft, nontender. Normoactive bowel sounds all 4 quadrants. No guarding or rebound. EXTREMITIES: Normal range of motion, no clubbing or edema. Neurovascularly intact NEUROLOGICAL: Alert and oriented x4.Normal gait and speech. SKIN: Warm, dry, no laceration, no petechiae, no rashes or lesions. Course Orders Ordered: ED Orders 02/16/23 06:25 VBG [Venous Blood Gas] Stat 02/16/23 06:29 Complete Blood Count AUTO DIFF Stat Comprehensive Metabolic Panel Stat Ketones (Beta-Hydroxybutyrate) Stat Lactate (Lactic Acid) Stat Lipase Stat Troponin & CK Cardiac Panel Stat 02/16/23 07:27 CT abdomen pelvis w con Stat 02/16/23 08:04 EKG-12 Lead Stat 02/16/23 08:17 Urine Culture Stat Urine Microscopic Stat Acetaminophen (Acetaminophen 325 Mg Tablet) 650 mg PO Q6H PRN PRN Reason: Fever/Mild Pain (1-3) Dextrose (Dextrose 50 % In Water 25 Gm/50 Ml Syringe) 25 gm IV PRN PRN PRN Reason: Hypoglycemia Enoxaparin Sodium (Enoxaparin 40 Mg/0.4 Ml Syringe) 40 mg SUBCUT DAILY PRAVEEN Sodium Chloride (Normal Saline 0.9%) 1,000 mls @ 100 mls/hr IV CONT PRAVEEN Stop: 02/16/23 20:44 POTASSIUM CHLORIDE IN WATER (Potassium Cl 10 Meq/100 Ml Callie) 10 meq in 100 mls @ 100 mls/hr IV Q1H PRAVEEN Stop: 02/16/23 12:44 Insulin Human Regular (Insulin Regular 100 Unit/Ml 3 Ml Vial) 0 unit SUBCUT Q6H PRAVEEN; Protocol Labetalol HCl (Labetalol 20 Mg/4 Ml Syringe) 10 mg IV Q5MIN PRN PRN Reason: SBP >180 or DBP >110 Lorazepam (Lorazepam 2 Mg/Ml Inj) 1 mg IV Q4HR PRN PRN Reason: Nausea And Vomiting Melatonin (Melatonin 3 Mg Tablet) 6 mg PO BEDTIME PRN PRN Reason: Insomnia Metoclopramide HCl (Metoclopramide 10 Mg/2 Ml Inj) 10 mg IV Q6HR PRN PRN Reason: Nausea And Vomiting Naloxone HCl (Naloxone 0.4 Mg/Ml Vial) 0.2 mg IV Q2MIN PRN PRN Reason: Opiate Reversal Ondansetron HCl (Ondansetron 4 Mg/2 Ml Inj) 4 mg IV Q4HR PRAVEEN Promethazine HCl (Promethazine 12.5 Mg Supp) 12.5 mg MO Q6HR PRN PRN Reason: Nausea And Vomiting Discontinued Medications Sodium Chloride (Normal Saline 0.9%) 1,000 mls @ 1,000 mls/hr IV BOLUS ONE Stop: 02/16/23 07:09 Last Admin: 02/16/23 06:30 Dose: 1,000 mls/hr Documented By: OUSMANE Sodium Chloride (Normal Saline 0.9%) 1,000 mls @ 1,000 mls/hr IV BOLUS ONE Stop: 02/16/23 08:26 Last Admin: 02/16/23 07:36 Dose: 1,000 mls/hr Documented By: SLICK Insulin Human Lispro (Insulin Lispro 100 Unit/Ml 3ml Vial) 0 unit SUBCUT [facility]; Protocol Ondansetron HCl (Ondansetron 4 Mg/2 Ml Inj) 4 mg IV NOW ONE Stop: 02/16/23 06:11 Last Admin: 02/16/23 06:30 Dose: 4 mg Documented By: OUSMANE Ondansetron HCl (Ondansetron 4 Mg/2 Ml Inj) 4 mg IV NOW ONE Stop: 02/16/23 07:28 Last Admin: 02/16/23 07:35 Dose: 4 mg Documented By: SLICK Pantoprazole Sodium (Pantoprazole 40 Mg Vial) 40 mg IV NOW ONE Stop: 02/16/23 06:11 Last Admin: 02/16/23 06:30 Dose: 40 mg Documented By: OUSMANE Vital Signs Vital signs: Vital Signs - 8 hr 02/16/23 06:19 02/16/23 07:51 02/16/23 07:53 Temperature Pulse Rate 60 64 Respiratory Rate 16 24 Blood Pressure 196/86 H 211/89 H Pulse Oximetry 100 96 Oxygen Delivery Method Room Air 02/16/23 07:53 06/29/23 07:57 Temperature 98.8 F Pulse Rate 63 66 Respiratory Rate 24 Blood Pressure 211/89 H Pulse Oximetry 98 98 Oxygen Delivery Method Room Air Room Air MDM - Nausea/Vomiting/Diarrhea Lab Data 02/16/23 06:29 02/16/23 06:29 Labs: Lab Results 02/16/23 02/16/23 02/16/23 Range/Units 06:25 06:29 06:29 WBC 9.2 (4.5-11.0) X10^3/uL RBC 4.85 (4.0-5.2) X10^6/uL Hgb 14.6 (12.0-16.0) g/dL Hct 41.3 (36-46) % MCV 85.1 (80-100) fL MCH 30.1 (26-34) PG MCHC 35.3 (30-36) % RDW 13.4 (11.6-14.8) % Plt Count 233 (150-400) X10^3/uL Neut % (Auto) 73.8 (50-75) % Lymph % (Auto) 17.2 L (25-40) % [place] % (Auto) 8.5 (3-14) % Eos % (Auto) 0.1 L (2-4) % Baso % (Auto) 0.4 (0-2) % Neut # (Auto) 6800 (5708-0556) /uL Lymph # (Auto) 1600 (6633-8192) /uL [place] # (Auto) 800 (0-900) /uL Eos # (Auto) 0 (0-450) /uL Baso # (Auto) 0 (0-100) /uL VBG pH 7.47 H (7.33-7.43) VBG pCO2 38.5 L (45-50) mmHg VBG pO2 37 (35-45) mmHg VBG HCO3 28 (24-28) mmol/L VBG Total CO2 29 (24-29) mmol/L VBG O2 Saturation 74 (70-75) % VBG Base Excess 4.0 (0-4) mmol/L FiO2 21 Sodium 133 L (137-145) mmol/L Potassium 3.2 L (3.4-5.1) mmol/L Chloride 96 L (98-107) mmol/L Carbon Dioxide 25 (22-32) mmol/L BUN 23 H (7-17) mg/dL Creatinine 1.37 H (0.52-1.04) mg/dL Estimated GFR 42 L (>60) mL/min BUN/Creatinine Ratio 16.8 (6-22) Glucose 106 (80-110) mg/dL Lactate (0.7-2.1) mmol/L Calcium 9.8 (8.4-10.2) mg/dL Magnesium (1.6-2.3) mg/dL Total Bilirubin 1.1 (0.2-1.3) mg/dL AST 28 (14-36) IU/L ALT 20 (<35) IU/L Alkaline Phosphatase 65 (38-126) U/L Total Creatine Kinase (30-135) U/L CK-MB (CK-2) Troponin I (0.01-0.034) ng/mL Total Protein 7.2 (6.3-8.2) g/dL Albumin 4.3 (3.5-5.0) g/dL Globulin 2.9 (1.7-4.1) g/dL Albumin/Globulin Ratio 1.5 (1.0-2.8) Lipase 261 (23-300) U/L Urine RBC (0-5/HPF) Urine WBC (0-5/HPF) Ur Squamous Epith Cells (0-5/HPF) Urine Bacteria (None) Ur Culture Indicated? Ketones 0.73 H (<0.27) mmol/L 02/16/23 02/16/23 02/16/23 Range/Units 06:29 06:29 07:31 WBC (4.5-11.0) X10^3/uL RBC (4.0-5.2) X10^6/uL Hgb (12.0-16.0) g/dL Hct (36-46) % MCV (80-100) fL MCH (26-34) PG MCHC (30-36) % RDW (11.6-14.8) % Plt Count (150-400) X10^3/uL Neut % (Auto) (50-75) % Lymph % (Auto) (25-40) % [place] % (Auto) (3-14) % Eos % (Auto) (2-4) % Baso % (Auto) (0-2) % Neut # (Auto) (0856-5118) /uL Lymph # (Auto) (5727-8930) /uL [place] # (Auto) (0-900) /uL Eos # (Auto) (0-450) /uL Baso # (Auto) (0-100) /uL VBG pH (7.33-7.43) VBG pCO2 (45-50) mmHg VBG pO2 (35-45) mmHg VBG HCO3 (24-28) mmol/L VBG Total CO2 (24-29) mmol/L VBG O2 Saturation (70-75) % VBG Base Excess (0-4) mmol/L FiO2 Sodium (137-145) mmol/L Potassium (3.4-5.1) mmol/L Chloride (98-107) mmol/L Carbon Dioxide (22-32) mmol/L BUN (7-17) mg/dL Creatinine (0.52-1.04) mg/dL Estimated GFR (>60) mL/min BUN/Creatinine Ratio (6-22) Glucose (80-110) mg/dL Lactate 1.0 (0.7-2.1) mmol/L Calcium (8.4-10.2) mg/dL Magnesium 1.8 (1.6-2.3) mg/dL Total Bilirubin (0.2-1.3) mg/dL AST (14-36) IU/L ALT (<35) IU/L Alkaline Phosphatase (38-126) U/L Total Creatine Kinase 325 H (30-135) U/L CK-MB (CK-2) TNP Troponin I 0.022 (0.01-0.034) ng/mL Total Protein (6.3-8.2) g/dL Albumin (3.5-5.0) g/dL Globulin (1.7-4.1) g/dL Albumin/Globulin Ratio (1.0-2.8) Lipase (23-300) U/L Urine RBC (0-5/HPF) Urine WBC (0-5/HPF) Ur Squamous Epith Cells (0-5/HPF) Urine Bacteria (None) Ur Culture Indicated? Ketones (<0.27) mmol/L 02/16/23 Range/Units 08:17 WBC (4.5-11.0) X10^3/uL RBC (4.0-5.2) X10^6/uL Hgb (12.0-16.0) g/dL Hct (36-46) % MCV (80-100) fL MCH (26-34) PG MCHC (30-36) % RDW (11.6-14.8) % Plt Count (150-400) X10^3/uL Neut % (Auto) (50-75) % Lymph % (Auto) (25-40) % [place] % (Auto) (3-14) % Eos % (Auto) (2-4) % Baso % (Auto) (0-2) % Neut # (Auto) (3014-9292) /uL Lymph # (Auto) (1655-8477) /uL [place] # (Auto) (0-900) /uL Eos # (Auto) (0-450) /uL Baso # (Auto) (0-100) /uL VBG pH (7.33-7.43) VBG pCO2 (45-50) mmHg VBG pO2 (35-45) mmHg VBG HCO3 (24-28) mmol/L VBG Total CO2 (24-29) mmol/L VBG O2 Saturation (70-75) % VBG Base Excess (0-4) mmol/L FiO2 Sodium (137-145) mmol/L Potassium (3.4-5.1) mmol/L Chloride (98-107) mmol/L Carbon Dioxide (22-32) mmol/L BUN (7-17) mg/dL Creatinine (0.52-1.04) mg/dL Estimated GFR (>60) mL/min BUN/Creatinine Ratio (6-22) Glucose (80-110) mg/dL Lactate (0.7-2.1) mmol/L Calcium (8.4-10.2) mg/dL Magnesium (1.6-2.3) mg/dL Total Bilirubin (0.2-1.3) mg/dL AST (14-36) IU/L ALT (<35) IU/L Alkaline Phosphatase (38-126) U/L Total Creatine Kinase (30-135) U/L CK-MB (CK-2) Troponin I (0.01-0.034) ng/mL Total Protein (6.3-8.2) g/dL Albumin (3.5-5.0) g/dL Globulin (1.7-4.1) g/dL Albumin/Globulin Ratio (1.0-2.8) Lipase (23-300) U/L Urine RBC 1-5/hpf (0-5/HPF) Urine WBC 10-30/hpf H (0-5/HPF) Ur Squamous Epith Cells 1-5 /hpf (0-5/HPF) Urine Bacteria Moderate (10-30) H (None) Ur Culture Indicated? Specimen cultured Ketones (<0.27) mmol/L Urine Dip Bedside Urine Glucose Negative Bedside Urine Bilirubin - Negative Bedside Urine Ketone +/- 5 Urine Specific [place] 1.015 Bedside Urine Occult Blood + Bedside Urine pH 6.0 Bedside Urine Protein - Negative Bedside Urine Urobilinogen - Negative Bedside Urine Nitrite - Negative Bedside Urine Leukocytes ++ [address] scan - abdomen/pelvis: Radiologist's Impression: PROCEDURE:? CT ABDOMEN PELVIS W CON ? INDICATIONS:? persistant vomiting ? TECHNIQUE:? After the administration of oral and IV contrast, axial sections were acquired from the lung bases to the pubic symphysis.? Coronal and sagittal reformats were perform ed.? For radiation dose reduction, the following was used:? automated exposure control, adjustment of mA and/or kV according to patient size. ? COMPARISON:? None. ? FINDINGS:? Image quality:? Excellent.? ? Lung bases:? Left basilar scars and atelectasis. ? Small hiatal hernia.? Heart:? No significant findings. ? ? ABDOMEN: Liver:? Mild hepatic steatosis..? ? Gallbladder:? Surgically absent.? ? Biliary ducts:? Unremarkable.? ? Pancreas:? Unremarkable.? ? Spleen:? Unremarkable.? ? Adrenal Glands:? Unremarkable.? ? Kidneys and Ureters:? Normal size and enhancement.? No stones or hydronephrosis.? There is a 1.8 cm simple appearing cyst in the inferior pole of the left kidney.? Other small cortical hypodensities are most likely cysts. ? ? Stomach and Bowel:? There is mild diffuse colonic wall thickening involving the descending and sigmoid colon, as well as rectum, consistent with colitis.? S tomach, small bowel loops, and colon are unremarkable.? Peritoneum:? No abnormal intraperitoneal fluid.? No free air.? ? Ventral Wall: ? No hernia.? Abdominal Nodes:? No retroperitoneal or mesenteric adenopathy by size criteria.? Vessels:? Aorta and inferior vena cava are normal in size.? ? PELVIS: Pelvic Organs:? Unremarkable.? ? Bladder:? Unremarkable.? ? Pelvic Nodes: No enlarged lymph nodes.? Miscellaneous: No inguinal hernias are seen. ? ? ? Bones:? Unremarkable.? IMPRESSION:? ? 1.? Mild diffuse colonic wall thickening involving the descending and sigmoid colon, as well as rectum, consistent with colitis. ? 2. No findings to suggest small bowel obstruction. ? 3. Small hiatal hernia. ? 4. Mild hepatic steatosis.? Dictated by: Edith Vega M.D. on 02/16/2023 at 7:49 ? ? ECG Data Interpretation: Sinus rhythm rate 62 MO interval 146 QRS 138 QTC 487 right bundle-branch block noted similar to previous EKGs no changes MDM Narrative Medical decision making narrative: Patient 67-year-old female history of hypertension insulin-dependent diabetes presenting 3rd time this week nausea vomiting and now diarrhea. Unable to tolerate any fluids at home not able to keep her hypertension medications down. Today blood work is again reassuring without evidence of DKA, DASHA or sepsis. CT shows diffuse colonic wall thickening consistent with colitis. This clinically correlates with her nausea vomiting diarrhea. Her urinalysis from February 14 is positive for E coli with macdonald sensitivity she has not been put on antibiotics. Her blood pressure is noted to be elevated without sign of end-organ damage secondary to inability to keep her medications down. Due to intractable nausea vomiting and frequent ED visits failed outpatient treatment will need to come in. Discharge Plan Departure Patient Disposition: Admitted as Observation Clinical Impression: Intractable nausea and vomiting, Hypertension Admit Date/Time: 02/16/23 08:34 Admit Provider: Gustavo Mayers
--- NOTE | 2023-02-16 07:27 | DI.CT.S_ITS ---
PROCEDURE: CT ABDOMEN PELVIS W CON INDICATIONS: persistant vomiting TECHNIQUE: After the administration of oral and IV contrast, axial sections were acquired from the lung bases to the pubic symphysis. Coronal and sagittal reformats were performed. For radiation dose reduction, the following was used: automated exposure control, adjustment of mA and/or kV according to patient size. COMPARISON: None. FINDINGS: Image quality: Excellent. Lung bases: Left basilar scars and atelectasis. Small hiatal hernia. Heart: No significant findings. ABDOMEN: Liver: Mild hepatic steatosis.. Gallbladder: Surgically absent. Biliary ducts: Unremarkable. Pancreas: Unremarkable. Spleen: Unremarkable. Adrenal Glands: Unremarkable. Kidneys and Ureters: Normal size and enhancement. No stones or hydronephrosis. There is a 1.8 cm simple appearing cyst in the inferior pole of the left kidney. Other small cortical hypodensities are most likely cysts. Stomach and Bowel: There is mild diffuse colonic wall thickening involving the descending and sigmoid colon, as well as rectum, consistent with colitis. Stomach, small bowel loops, and colon are unremarkable. Peritoneum: No abnormal intraperitoneal fluid. No free air. Ventral Wall: No hernia. Abdominal Nodes: No retroperitoneal or mesenteric adenopathy by size criteria. Vessels: Aorta and inferior vena cava are normal in size. PELVIS: Pelvic Organs: Unremarkable. Bladder: Unremarkable. Pelvic Nodes: No enlarged lymph nodes. Miscellaneous: No inguinal hernias are seen. Bones: Unremarkable. IMPRESSION: 1. Mild diffuse colonic wall thickening involving the descending and sigmoid colon, as well as rectum, consistent with colitis. 2. No findings to suggest small bowel obstruction. 3. Small hiatal hernia. 4. Mild hepatic steatosis. Dictated by: Edith Vega M.D. on 02/16/2023 at 7:49 Approved by: Edith Vega M.D. on 02/16/2023 at 7:55
[2023-02-16 07:48] LABS: Creatine Kinase 325 U/L (30-135)
[2023-02-16 08:01] LABS: Troponin I 0.022 ng/mL (0.01-0.034)
[2023-02-16 08:37] LABS: Bacteria Urine Moderate (10-30); Culture Indicated Urine Specimen Cultured; RBC Urine 1-5/HPF (0-5/HPF); Squamous Epithelial Cell Urine 1-5 /HPF (0-5/HPF); WBC Urine 10-30/HPF (0-5/HPF)
--- NOTE | 2023-02-16 08:43 | PM.HP.1 ---
History of Present Illness History of Present Illness Date Patient Seen: 02/16/23 Time Patient Seen: 12:00 Chief complaint: v/d/n Narrative: Danna Ordonez is a 67yo F with PMH of DM2 on insulin, HTN, and HLD who presents with intractable NV. Patient first developed NV and diarrhea last monday. She has been to the ED x3 since then for persistent symptoms and unable to keep anything down. She is currently feeling alot better after IVF and antiemetics. Last had diarrhea yesterday, nonbloody. No abd pain. She denies sick contacts. No recent travel. She denies CP, SOB, headache, dizziness or syncope. [facility] Social History household members: spouse Smoking Status: Never smoker Meds Home Medications and Allergies Home Medications Medication Instructions Recorded Confirmed Type Basaglar KwikPen U-100 Insulin 40 units SUBCUT BEDTIME 07/24/19 02/16/23 History atorvastatin 40 mg tablet 40 mg PO DAILY 07/24/19 02/16/23 History hydrochlorothiazide 25 mg tablet 25 mg PO DAILY 07/24/19 02/16/23 History lisinopril 10 mg tablet 10 mg PO DAILY 07/24/19 02/16/23 History potassium chloride 10 mEq 10 meq PO DAILY 07/24/19 02/16/23 History tablet,extended release (Klor-Con) metoclopramide HCl 10 mg tablet 10 mg PO Q6H PRN nausea and 02/13/23 02/16/23 Rx (Reglan) vomiting #14 tabs ondansetron 4 mg disintegrating 4 mg PO Q8H PRN nausea and 02/14/23 02/16/23 Rx tablet vomiting #10 tabs Allergies Allergy/AdvReac Type Severity Reaction Status Date / Time No Known Drug Allergies Allergy Verified 02/13/23 06:24 Review of Systems Review of Systems Narrative: All other systems reviewed with the patient and are negative unless otherwise stated. Exam Vital Signs (past 8 hours): - 02/16/23 06:19 02/16/23 07:51 02/16/23 07:53 Temperature Pulse Rate 60 64 Respiratory Rate 16 24 Blood Pressure 196/86 H 211/89 H Pulse Oximetry 100 96 Oxygen Delivery Method Room Air 02/16/23 07:53 02/16/23 07:57 Temperature 98.8 F Pulse Rate 63 66 Respiratory Rate 24 Blood Pressure 211/89 H Pulse Oximetry 98 98 Oxygen Delivery Method Room Air Room Air Oxygen Delivery Method Room Air Narrative Exam Narrative: GEN: no acute distress HEENT: moist mucous membranes, PERRL NECK: trachea midline, no JVD CV: regular rate and rhythm, no murmurs PULM: clear bilaterally ABD: soft, nontender, nondistended, no organomegaly EXT: warm and well perfused with no edema NEURO: awake, alert, oriented, no focal deficits Objective Labs 02/16/23 06:29 02/16/23 06:29 Labs: Laboratory Results - last 24 hr 02/16/23 02/16/23 02/16/23 06:25 06:29 06:29 WBC 9.2 RBC 4.85 Hgb 14.6 Hct 41.3 MCV 85.1 MCH 30.1 MCHC 35.3 RDW 13.4 Plt Count 233 Neut % (Auto) 73.8 Lymph % (Auto) 17.2 L [place] % (Auto) 8.5 Eos % (Auto) 0.1 L Baso % (Auto) 0.4 Neut # (Auto) 6800 Lymph # (Auto) 1600 [place] # (Auto) 800 Eos # (Auto) 0 Baso # (Auto) 0 VBG pH 7.47 H VBG pCO2 38.5 L VBG pO2 37 VBG HCO3 28 VBG Total CO2 29 VBG O2 Saturation 74 VBG Base Excess 4.0 FiO2 21 Sodium 133 L Potassium 3.2 L Chloride 96 L Carbon Dioxide 25 BUN 23 H Creatinine 1.37 H Estimated GFR 42 L BUN/Creatinine Ratio 16.8 Glucose 106 Lactate Calcium 9.8 Total Bilirubin 1.1 AST 28 ALT 20 Alkaline Phosphatase 65 Total Creatine Kinase CK-MB (CK-2) Troponin I Total Protein 7.2 Albumin 4.3 Globulin 2.9 Albumin/Globulin Ratio 1.5 Lipase 261 Urine RBC Urine WBC Ur Squamous Epith Cells Urine Bacteria Ur Culture Indicated? Ketones 0.73 H 02/16/23 02/16/23 02/16/23 06:29 06:29 08:17 WBC RBC Hgb Hct MCV MCH MCHC RDW Plt Count Neut % (Auto) Lymph % (Auto) [place] % (Auto) Eos % (Auto) Baso % (Auto) Neut # (Auto) Lymph # (Auto) [place] # (Auto) Eos # (Auto) Baso # (Auto) VBG pH VBG pCO2 VBG pO2 VBG HCO3 VBG Total CO2 VBG O2 Saturation VBG Base Excess FiO2 Sodium Potassium Chloride Carbon Dioxide BUN Creatinine Estimated GFR BUN/Creatinine Ratio Glucose Lactate 1.0 Calcium Total Bilirubin AST ALT Alkaline Phosphatase Total Creatine Kinase 325 H CK-MB (CK-2) TNP Troponin I 0.022 Total Protein Albumin Globulin Albumin/Globulin Ratio Lipase Urine RBC 1-5/hpf Urine WBC 10-30/hpf H Ur Squamous Epith Cells 1-5 /hpf Urine Bacteria Moderate (10-30) H Ur Culture Indicated? Specimen cultured Ketones Assessment & Plan Assessment & Plan narrative: # intractable NV from colitis -CT abd/pelvis shows colonic wall thickening of descending, sigmoid and rectum -collect stool PCR -IV zofran, reglan, ativan and phenergan supp PRN -IVF -clear liquids and advance as tolerated # HTN urgency -BP 211/89 in ED -hold home lisinopril, resume HCTZ -labetalol IV PRN # DASHA vs CKD -Cr 1.37, no previously baseline. Could be prerenal from NV. -100cc/hr IVF -monitor and avoid nephrotoxic agents -hold home lisinopril # asymptomatic bacteriuria -UA with pyuria, however patient denies any UTI symptoms -will not treat with abx # hypokalemia -K 3.2 -replete and monitor -check mag # DM2 -hold home lantus while NPO -q6h BG with regular SSI while NPO -check A1c Code status is Full code. DVT prophylaxis with lovenox. Proxy is spouse Martin. I have reviewed home meds and used all available resources to reconcile the home meds. This patient will be admitted as obs and will require less than 2 midnights of hospital time to treat NV and colitis.
[2023-02-16 09:04] LABS: Magnesium 1.8 mg/dL (1.6-2.3)
[2023-02-16] MEDS: SODIUM CHLORIDE 0.9% 1,000 ML 100 ML IV ×2 (09:34→18:33)
[2023-02-16] MEDS: METOCLOPRAMIDE 10 MG/2 ML INJ IV (09:35)
[2023-02-16 09:53] LABS: TSH w/ Reflex to FT4 0.83 uIU/mL (0.47-4.68)
[2023-02-16] MEDS: POTASSIUM CHLORIDE IN WATER 10 MEQ/100 ML PIGGYBACK 100 MEQ IV ×4 (10:08→13:31)
[2023-02-16] MEDS: ENOXAPARIN 40 MG/0.4 ML SYRINGE SUBCUT (10:08)
[2023-02-16] MEDS: LABETALOL 20 MG/4 ML SYRINGE 10 MG IV (10:23)
[2023-02-16] MEDS: cefTRIAXone 1,000 MG in SODIUM CHLORIDE 0.9% 100 ML 200 MG IV (10:59)
[2023-02-16 11:14] LABS: MRSA (Nasal) PCR Not Detected (Not Detect)
[2023-02-16] MEDS: hydroCHLOROthiazide 25 MG TABLET PO (14:54)
[2023-02-17] VITALS (11 sets, daily range): BP systolic 144–165; BP diastolic 63–72; PULSE 55–88; RESP 16–20; TEMP 36.3–37.1; O2SAT 95–99
--- NOTE | 2023-02-17 00:21 | PC.NURSE ---
0020-ER brought up a urine culture report from 02/14 that shows e-coli growing in the urine. Patient has another urine culture pending from admission today. Patient is not on antibiotics. Dr. Pacheco notified and no orders received. Will monitor.
[2023-02-17] MEDS: ONDANSETRON 4 MG/2 ML INJ IV ×3 (04:43→12:39)
[2023-02-17 05:26] LABS: BUN Creatinine Ratio 9.9 (6-22); Blood Urea Nitrogen 14 mg/dL (7-17); Calcium 8.2 mg/dL (8.4-10.2); Carbon Dioxide 28 mmol/L (22-32); Chloride 100 mmol/L (98-107); Estimated Glomerular Filt Rate 40 mL/min (>60); Glucose 83 mg/dL (80-110); HEMOLYSIS < 15 (0-50); Potassium 3.4 mmol/L (3.4-5.1); Sodium 133 mmol/L (137-145)
[2023-02-17 05:42] LABS: Add Manual Diff / Slide Review NO; Basophils Absolute Auto 0 /uL (0-100); Basophils Percent Auto 0.4 % (0-2); Eosinophils Absolute Auto 100 /uL (0-450); Eosinophils Percent Auto 1.6 % (2-4); Hematocrit 33.6 % (36-46); Lymphocytes Absolute Auto 2100 /uL (1100-4500); Lymphocytes Percent Auto 39.6 % (25-40); Mean Corpuscular HGB Conc 35.6 % (30-36); Mean Corpuscular Hemoglobin 30.7 PG (26-34); Mean Corpuscular Volume 86.2 fL (80-100); Monocytes Absolute Auto 500 /uL (0-900); Monocytes Percent Auto 10.5 % (3-14); Neutrophils Absolute Auto 2500 /uL (1500-7000); Neutrophils Percent Auto 47.9 % (50-75); Platelet Count 202 X10^3/uL (150-400); Red Cell Distribution Width 13.3 % (11.6-14.8); White Blood Cell Count 5.2 X10^3/uL (4.5-11.0)
[2023-02-17 07:19] LABS: x Labcorp Estim. Avg Glu (eAG) 114 mg/dL (.); x Labcorp Hemoglobin A1c 5.6 % (4.8-5.6)
[2023-02-17] MEDS: SODIUM CHLORIDE 0.9% 1,000 ML 1000 ML IV (07:25)
[2023-02-17] MEDS: hydroCHLOROthiazide 25 MG TABLET PO (10:16)
[2023-02-17] MEDS: ENOXAPARIN 40 MG/0.4 ML SYRINGE SUBCUT (10:16)
--- NOTE | 2023-02-17 11:34 | CM.DANOTE ---
Initial DCP Assessment Note Pt is a 67yo female, resident of [place], insulin-dependent diabetic, arrives for the third time this week with days of intractable N/V/D, cannot hold anything down. Patient admitted OBS for management of Colitis w/ N/V/D PCP: No PCP currently Payer: [employer]/[place] Reviewed chart, pt discussed in multidisciplinary rounds this morning. Patient starting to feel better, possible DC home later today or tomorrow. Patient indp at baseline and expects to return home to the care of her spouse, denies any discharge needs No barriers identified at this time to patient's safe discharge home w/family to assist; close outpatient f/u recommended. CATHY Mac Discharge Planning/Care Management CM Discharge Assessment Start: 02/17/23 11:16 Freq: Status: Active Protocol: Document 02/17/23 11:16 YAMIL (Rec: 02/17/23 11:34 YAMIL [id number]) Discharge Planning Assessment Assigned Hunting Guide CATHY Hudson DPOA/Assigned Designee Name Martin Ordonez, spouse Contact Information [phone] Advance Directives? No History Provided By Patient Prior Living Arrangements House Household Members spouse Type of transporation used prior to Drives own vehicle admit Independent with ADL's Yes Is patient alert and oriented? Yes Barriers to Discharge No Comment Anticipate home w/spouse when medically cleared, close outpatient follow up Discharge Plan Home Transportation Arrangement Spouse Referrals Initiated None needed Document 02/17/23 11:27 YAMIL (Rec: 02/17/23 11:34 YAMLI [id number]) Discharge Planning Assessment Advance Directives? No History Provided By Patient Prior Living Arrangements House Household Members spouse
[2023-02-17 12:40] LABS: BUN Creatinine Ratio 9.9 (6-22); Blood Urea Nitrogen 14 mg/dL (7-17); Calcium 8.5 mg/dL (8.4-10.2); Carbon Dioxide 25 mmol/L (22-32); Chloride 101 mmol/L (98-107); Estimated Glomerular Filt Rate 40 mL/min (>60); Glucose 99 mg/dL (80-110); HEMOLYSIS < 15 (0-50); Potassium 3.3 mmol/L (3.4-5.1); Sodium 134 mmol/L (137-145)
[2023-02-17] MEDS: SODIUM CHLORIDE 0.9% 1,000 ML 100 ML IV (13:24)
[2023-02-17] MEDS: POTASSIUM CHLORIDE IN WATER 10 MEQ/100 ML PIGGYBACK 100 MEQ IV ×4 (13:28→16:28)
--- NOTE | 2023-02-17 16:13 | P.PN_ITS ---
Subjective Subjective Interval history: Patient still having some nausea, but overall feels much better today. Hasn't advanced diet much. Exam Vital Signs (past 8 hours): - 02/17/23 10:00 02/17/23 12:00 Temperature 98.6 F 97.4 F L Pulse Rate 88 62 Respiratory Rate 16 20 Blood Pressure 162/67 H 165/70 H Pulse Oximetry 97 97 Oxygen Flow Rate 0 Oxygen Delivery Method Room Air Oxygen Flow Rate 0 Narrative Exam Narrative: GEN: no acute distress HEENT: moist mucous membranes, PERRL NECK: trachea midline, no JVD CV: regular rate and rhythm, no murmurs PULM: clear bilaterally ABD: soft, nontender, nondistended, no organomegaly EXT: warm and well perfused with no edema NEURO: awake, alert, oriented, no focal deficits Objective Labs 02/17/23 04:43 02/17/23 12:23 Labs: Laboratory Results - last 24 hr 02/16/23 02/17/23 02/17/23 06:25 04:43 04:43 WBC 5.2 RBC 3.90 L Hgb 12.0 Hct 33.6 L MCV 86.2 MCH 30.7 MCHC 35.6 RDW 13.3 Plt Count 202 Neut % (Auto) 47.9 L D Lymph % (Auto) 39.6 D [place] % (Auto) 10.5 Eos % (Auto) 1.6 L Baso % (Auto) 0.4 Neut # (Auto) 2500 Lymph # (Auto) 2100 [place] # (Auto) 500 Eos # (Auto) 100 Baso # (Auto) 0 Sodium 133 L Potassium 3.4 Chloride 100 Carbon Dioxide 28 BUN 14 Creatinine 1.42 H Estimated GFR 40 L BUN/Creatinine Ratio 9.9 Glucose 83 Hgb A1c (Ref Lab) 5.6 Estim Average Glucose 114 Calcium 8.2 L 02/17/23 12:23 WBC RBC Hgb Hct MCV MCH MCHC RDW Plt Count Neut % (Auto) Lymph % (Auto) [place] % (Auto) Eos % (Auto) Baso % (Auto) Neut # (Auto) Lymph # (Auto) [place] # (Auto) Eos # (Auto) Baso # (Auto) Sodium 134 L Potassium 3.3 L Chloride 101 Carbon Dioxide 25 BUN 14 Creatinine 1.42 H Estimated GFR 40 L BUN/Creatinine Ratio 9.9 Glucose 99 Hgb A1c (Ref Lab) Estim Average Glucose Calcium 8.5 PFSH Social History household members: spouse Smoking Status: Never smoker Assessment & Plan Assessment & Plan narrative: # intractable NV from colitis -CT abd/pelvis shows colonic wall thickening of descending, sigmoid and rectum -collect stool PCR if able -IV zofran, reglan, ativan and phenergan supp PRN -IVF -clear liquids and advance as tolerated # HTN urgency -BP 211/89 in ED -hold home lisinopril, resume HCTZ -labetalol IV PRN # CKD-3 -Cr 1.37 on admission, at baseline -100cc/hr IVF -monitor and avoid nephrotoxic agents -continue home lisinopril # asymptomatic bacteriuria -UA with pyuria, however patient denies any UTI symptoms -will not treat with abx # hypokalemia -K 3.2 -replete and monitor -mag 1.8 # DM2 -hold home lantus while NPO -q6h BG with regular SSI while NPO -A1c 5.6% Code status is Full code. DVT prophylaxis with lovenox. Proxy is spouse Martin. Dispo: Likely home on 02/18.
[2023-02-17] MEDS: cefTRIAXone 1,000 MG in SODIUM CHLORIDE 0.9% 100 ML 200 MG IV (17:28)
[2023-02-18] VITALS: BP 157/70; PULSE 74; RESP 19; TEMP 37.6; O2SAT 98
[2023-02-18 04:46] LABS: Add Manual Diff / Slide Review NO; Basophils Absolute Auto 100 /uL (0-100); Basophils Percent Auto 2.3 % (0-2); Eosinophils Absolute Auto 100 /uL (0-450); Eosinophils Percent Auto 2.3 % (2-4); Hematocrit 34.9 % (36-46); Hemoglobin 12.1 g/dL (12.0-16.0); Lymphocytes Absolute Auto 1600 /uL (1100-4500); Lymphocytes Percent Auto 29.7 % (25-40); Mean Corpuscular HGB Conc 34.8 % (30-36); Mean Corpuscular Hemoglobin 29.8 PG (26-34); Mean Corpuscular Volume 85.5 fL (80-100); Monocytes Absolute Auto 400 /uL (0-900); Monocytes Percent Auto 8.1 % (3-14); Neutrophils Absolute Auto 3200 /uL (1500-7000); Neutrophils Percent Auto 57.6 % (50-75); Platelet Count 214 X10^3/uL (150-400); Red Blood Cell Count 4.08 X10^6/uL (4.0-5.2); Red Cell Distribution Width 13.5 % (11.6-14.8); White Blood Cell Count 5.5 X10^3/uL (4.5-11.0)
[2023-02-18 04:49] LABS: BUN Creatinine Ratio 8.8 (6-22); Blood Urea Nitrogen 12 mg/dL (7-17); Calcium 8.6 mg/dL (8.4-10.2); Carbon Dioxide 25 mmol/L (22-32); Chloride 102 mmol/L (98-107); Estimated Glomerular Filt Rate 42 mL/min (>60); Glucose 93 mg/dL (80-110); HEMOLYSIS < 15 (0-50); Potassium 3.9 mmol/L (3.4-5.1); Sodium 136 mmol/L (137-145)
[2023-02-18 06:00] VITALS: BP 150/66; PULSE 60; RESP 19; TEMP 36.7; O2SAT 97
[2023-02-18 08:27] VITALS: BP 140/66; PULSE 72
[2023-02-18] MEDS: lisinopriL 10 MG TABLET PO (08:27)
[2023-02-18] MEDS: hydroCHLOROthiazide 25 MG TABLET PO (08:30)
[2023-02-18 08:31] VITALS: BP 140/66; PULSE 68; RESP 17; TEMP 36.6; O2SAT 96
[2023-02-18] MEDS: ENOXAPARIN 40 MG/0.4 ML SYRINGE SUBCUT (08:31)
--- NOTE | 2023-02-18 08:36 | P.DS_ITS ---
History of Present Illness History of Present Illness Chief complaint: v/d/n Narrative: Per history and physical: Danna Ordonez is a 67yo F with PMH of DM2 on insulin, HTN, and HLD who presents with intractable NV. Patient first developed NV and diarrhea last monday. She has been to the ED x3 since then for persistent symptoms and unable to keep anything down. She is currently feeling alot better after IVF and antiemetics. Last had diarrhea yesterday, nonbloody. No abd pain. She denies sick contacts. No recent travel. She denies CP, SOB, headache, dizziness or syncope. Discharge Providers Provider Date of admission: 02/16/23 08:34 Discharge Date: 02/18/23 Discharge provider: Elisa Samson MD Summary Hospital Course Discharge Diagnosis: 1. Intractable nausea vomiting, resolved 2. Colitis, improved 3. Pansensitive E coli UTI 4. Hypertensive urgency 5. CKD 3 6. Hypokalemia, resolved 7. Hyponatremia, resolving 8. Diabetes mellitus type 2 Hospital Course: Patient was admitted after 3 separate visits to the emergency department on February 13, February 14, and February 16. She was having intractable nausea and vomiting as well as diarrhea. She was having difficulty maintaining her hydration. On admission, a CT scan was performed which revealed mild diffuse colonic wall thi ckening involving the descending and sigmoid colon as well as rectum. Small hiatal hernia. Mild hepatic steatosis. She was treated conservatively with IV fluids and bowel rest as well as IV antiemetics. Her symptoms gradually improved and by the date of discharge, she was tolerating oral intake, had no further vomiting, and no further diarrhea. She is discharged in stable condition. Status at Discharge Cognitive/behavioral status at discharge: at baseline, oriented Functional status at discharge: independent ambulation Overall status at discharge: patient is progressing back to baseline Time Spent with Patient Time spent: Less than 30 minutes Exam Vital Signs (past 8 hours): - 02/18/23 06:00 02/18/23 07:00 02/18/23 08:27 Temperature 98.1 F Pulse Rate 60 72 Respiratory Rate 19 Blood Pressure 150/66 H 140/66 Pulse Oximetry 97 Oxygen Delivery Method Room Air Oxygen Flow Rate 02/18/23 08:31 Temperature 97.8 F Pulse Rate 68 Respiratory Rate 17 Blood Pressure 140/66 Pulse Oximetry 96 Oxygen Delivery Method Oxygen Flow Rate 0 Oxygen Delivery Method Room Air Oxygen Flow Rate 0 Narrative Exam Narrative: GEN: Alert and oriented x 3, NAD HEENT:NC, Face symmetric CHEST: Respiratory excursions symmetric, CTAB CV: RRR, no M/R/G ABD: Soft, NT/ND, BT present in all 4 quadrants, no organomegaly or masses EXTR: warm, well perfused, no C/C/E SKIN: warm and dry, no rash NEURO: Alert and oriented x 3, nonfocal Objective Labs 02/18/23 04:11 02/18/23 04:11 Labs: Laboratory Results - last 24 hr 02/17/23 02/18/23 02/18/23 12:23 04:11 04:11 WBC 5.5 RBC 4.08 Hgb 12.1 Hct 34.9 L MCV 85.5 MCH 29.8 MCHC 34.8 RDW 13.5 Plt Count 214 Neut % (Auto) 57.6 Lymph % (Auto) 29.7 [place] % (Auto) 8.1 Eos % (Auto) 2.3 Baso % (Auto) 2.3 H Neut # (Auto) 3200 Lymph # (Auto) 1600 [place] # (Auto) 400 Eos # (Auto) 100 Baso # (Auto) 100 Sodium 134 L 136 L Potassium 3.3 L 3.9 Chloride 101 102 Carbon Dioxide 25 25 BUN 14 12 Creatinine 1.42 H 1.37 H Estimated GFR 40 L 42 L BUN/Creatinine Ratio 9.9 8.8 Glucose 99 93 Calcium 8.5 8.6 PFSH Social History household members: spouse Smoking Status: Never smoker Discharge Plan Discharge Plan Patient Disposition: Home Provider Discharge Comment: You were admitted with gastroenteritis and colitis, as well as dehydration. You had some electrolyte abnormalities, including low potassium and low sodium. Those have now normalized. Your creatinine (kidney function) is improved at 1.37 today. It was 1.44 on admission. You also have a urinary tract infection with E coli that you have received 1 dose of antibiotics for this far. You will complete a course of oral antibiotics at discharge. Con tinue to advance your diet as tolerated. You should follow up for a colonoscopy in the near future. Please have your PCP refer you. Return to the ED: Fevers, shortness of breath, inability to hold down food or fluids. Follow-up: Please follow-up with your primary care provider next week. Discharge orders & Medications Prescriptions: New ciprofloxacin HCl 500 mg tablet 500 mg PO BID Qty: 8 0RF Continued metoclopramide HCl [Reglan] 10 mg tablet 10 mg PO Q6H PRN (Reason: nausea and vomiting) Qty: 14 0RF ondansetron 4 mg tablet,disintegrating 4 mg PO Q8H PRN (Reason: nausea and vomiting) Qty: 10 0RF atorvastatin 40 mg Tablet 40 mg PO DAILY lisinopril 10 mg Tablet 10 mg PO DAILY hydrochlorothiazide 25 mg Tablet 25 mg PO DAILY Unrulyaglar KwikPen U-100 Insulin 40 units 40 units subcut BEDTIME Discontinued potassium chloride [Klor-Con 10] 10 mEq Tablet Extended Release 10 meq PO DAILY Diet/Activity/Treatments Diet: Diet as Tolerated and Carb-consistent/Diabetic Activity: As tolerated Oxygen: N/A Visit Report/Discharge Packet Instructions: DI for Viral Gastroenteritis -- Adult, DI for Urinary Tract Infection (UTI), DI for Colitis Stand Alone Forms: Patient Portal/API
== END 2023-02-18 09:45 | disposition home or self-care (01) | DRG 392 ==
LOC: ED 08:23 → ICU 10:25 → AC 02-17 12:27
PROVIDERS: Emergency Medicine; Admitting Provider Student in an Organized Health Care Education/Training Program; Emergency Provider Emergency Medicine; Referring Provider Emergency Medicine; Visit Provider Student in an Organized Health Care Education/Training Program
DX: K52.9 Noninfective gastroenteritis and colitis, unspecified (principal); E87.1 Hypo-osmolality and hyponatremia; N39.0 Urinary tract infection, site not specified; I16.0 Hypertensive urgency; E87.6 Hypokalemia; I12.9 Hypertensive chronic kidney disease with stage 1 through stage 4 chronic kidney disease, or unspecified chronic kidney disease; E11.22 Type 2 diabetes mellitus with diabetic chronic kidney disease; N18.30 Chronic kidney disease, stage 3 unspecified; B96.20 Unspecified Escherichia coli [E. coli] as the cause of diseases classified elsewhere; E78.5 Hyperlipidemia, unspecified; Z79.4 Long term (current) use of insulin; Z20.822 Contact with and (suspected) exposure to COVID-19; R11.2 Nausea with vomiting, unspecified; R10.9 Unspecified abdominal pain
CPT/HCPCS: 36415; 74177; 80048; 80053; 81003; 81015; 82009; 82550; 82805; 82962; 83036; 83605; 83690; 83735; 84443; 84484; 85025; 87077; 87086; 87186; 87797; 93005; 93010; 96374; 96375; 96376; 99284; C9113; J0696; J1650; J2405; J2765; Q9967

== ENCOUNTER 2024-03-02 20:39 | Emergency (ER) | payer MEDICARE, OTHER, SELFPAY ==
[2023-02-16 13:00] VITALS: BMI 28.5
[2024-03-02 20:43] VITALS: BP 136/80; PULSE 87; RESP 16; TEMP 37.4; O2SAT 97; BMI 34.8
[2024-03-02 22:00] LABS: Bacteria Urine Moderate (10-30); Culture Indicated Urine Specimen Cultured; RBC Urine 0-1/HPF (0-5/HPF); Squamous Epithelial Cell Urine 0-1 /HPF (0-5/HPF); Urine Volume 10mL (spun); WBC Urine 30-100/HPF (0-5/HPF)
--- NOTE | 2024-03-02 22:50 | ED.ABDPAIN ---
HPI - Abdominal Pain General Chief Complaint: Abdominal Pain Stated Complaint: unbearable cramping Time Seen by Provider: 03/02/24 22:15 Source: patient Mode of arrival: Family Vehicle History of Present Illness HPI narrative: 69-year-old female with history of insulin-dependent diabetes, CKD stage 3 presents by private vehicle from home for 2-3 days of suprapubic cramping and urinary frequency. Patient states she feels as though she has a urinary tract infection. T-max 99? F at home. Denies nausea, vomiting, other complaints. Related Data Home Medications Medication Instructions Recorded Confirmed Basaglar KwikPen U-100 Insulin 40 units SUBCUT BEDTIME 07/24/19 02/16/23 atorvastatin 40 mg tablet 40 mg PO DAILY 07/24/19 02/16/23 hydrochlorothiazide 25 mg tablet 25 mg PO DAILY 07/24/19 02/16/23 lisinopril 10 mg tablet 10 mg PO DAILY 07/24/19 02/16/23 Previous Rx's Medication Instructions Recorded metoclopramide HCl 10 mg tablet 10 mg PO Q6H PRN nausea and 02/13/23 (Reglan) vomiting #14 tabs ondansetron 4 mg disintegrating 4 mg PO Q8H PRN nausea and 02/14/23 tablet vomiting #10 tabs ciprofloxacin HCl 500 mg tablet 500 mg PO BID #8 tabs 02/18/23 cephalexin 500 mg capsule 500 mg PO Q12H #14 caps 03/02/24 Allergies Allergy/AdvReac Type Severity Reaction Status Date / Time No Known Drug Allergies Allergy Verified 02/13/23 06:24 Patient History Social History household members: spouse Smoking Status: Never smoker Smoking Status: Never smoker alcohol intake frequency: 0-2 drinks per day Substance Use Type: does not use Exam Initial Vital Signs Initial Vital Signs: Vital Signs Temperature 99.3 F 03/02/24 20:43 Pulse Rate 87 03/02/24 20:43 Respiratory Rate 16 03/02/24 20:43 Blood Pressure 136/80 03/02/24 20:43 Pulse Oximetry 97 03/02/24 20:43 Oxygen Delivery Method Room Air 03/02/24 20:43 Const: Awake, alert, no acute distress, nontoxic appearing Cardiac: regular rate, regular rhythm RESP: unlabored, clear bilaterally, no wheezing GI: Soft, nontender, nondistended, no rebound, no guarding MSK back: No midline tenderness, no CVA tenderness bilaterally Skin: Warm, Dry, intact, no rashes Neuro: AO x3, CN II-XII grossly intact, moves all extremities Course Orders Ordered: Discontinued Medications Cephalexin HCl (Cephalexin 250 Mg Capsule) 500 mg PO NOW ONE Stop: 03/02/24 23:46 Last Admin: 03/02/24 23:51 Dose: 500 mg Documented By: Vital Signs Vital signs: Vital Signs - 8 hr 03/02/24 20:43 Temperature 99.3 F Pulse Rate 87 Respiratory Rate 16 Blood Pressure 136/80 Pulse Oximetry 97 Oxygen Delivery Method Room Air MDM - Abdominal Pain Differential Diagnosis Differential diagnosis: Likely abdominal pain, constipation and other (UTI) Lab Data 03/02/24 22:55 03/02/24 22:55 Labs: Lab Results 03/02/24 03/02/24 Range/Units 21:15 22:55 WBC 10.8 (4.5-11.0) X10^3/uL RBC 4.44 (4.0-5.2) X10^6/uL Hgb 13.4 (12.0-16.0) g/dL Hct 39.3 (36-46) % MCV 88.6 (80-100) fL MCH 30.3 (26-34) PG MCHC 34.2 (30-36) % RDW 13.1 (11.6-14.8) % Plt Count 210 (150-400) X10^3/uL Neut % (Auto) 78.0 H (50-75) % Lymph % (Auto) 13.7 L (25-40) % [place] % (Auto) 7.2 (3-14) % Eos % (Auto) 0.8 L (2-4) % Baso % (Auto) 0.3 (0-2) % Neut # (Auto) 8400 H (3270-4574) /uL Lymph # (Auto) 1500 (2506-1237) /uL [place] # (Auto) 800 (0-900) /uL Eos # (Auto) 100 (0-450) /uL Baso # (Auto) 0 (0-100) /uL Sodium 137 (137-145) mmol/L Potassium 4.0 (3.4-5.1) mmol/L Chloride 104 (98-107) mmol/L Carbon Dioxide 28 (22-32) mmol/L BUN 42 H (7-17) mg/dL Creatinine 1.94 H (0.52-1.04) mg/dL Estimated GFR 27 L (>60) mL/min BUN/Creatinine Ratio 21.6 (6-22) Glucose 167 H (80-110) mg/dL Calcium 9.5 (8.4-10.2) mg/dL Total Bilirubin 0.7 (0.2-1.3) mg/dL AST 30 (14-36) IU/L ALT 20 (<35) IU/L Alkaline Phosphatase 101 (38-126) U/L Total Protein 7.5 (6.3-8.2) g/dL Albumin 4.3 (3.5-5.0) g/dL Globulin 3.2 (1.7-4.1) g/dL Albumin/Globulin Ratio 1.3 (1.0-2.8) Urine RBC 0-1/hpf (0-5/HPF) Urine WBC 30-100/hpf H (0-5/HPF) Ur Squamous Epith Cells 0-1 /hpf (0-5/HPF) Urine Bacteria Moderate (10-30) H (None) Ur Culture Indicated? Specimen cultured Vol Urine Centrifuged 10ml (spun) Point of care testing: Urine Dip Bedside Urine Glucose 1000 mg/dl Bedside Urine Bilirubin - Negative Bedside Urine Ketone - Negative Urine Specific [place] 1.015 Bedside Urine Occult Blood +++ Bedside Urine pH 5.5 Bedside Urine Protein +/- 15 Bedside Urine Urobilinogen - Negative Bedside Urine Nitrite + Positive Bedside Urine Leukocytes + 70 Esterase MDM Narrative Medical decision making narrative: Suprapubic abdominal cramping and urinary frequency. Urinalysis positive for WBCs and bacteria. Laboratory work is reviewed, no leukocytosis. Creatinine today 1.94, GFR 27. One year ago patient's creatinine 1.37 with GFR 42. Patient states that her most recent baseline GFR is 33%. Patient's values today not significantly far off from patient's reported baseline. Patient informed of lab and urinalysis results. Counseled to drink lots of fluids and patient to be discharged on antibiotics for urinary tract infection. Patient states that she has not had antibiotics in more than several months and Keflex sent to pharmacy of choice. Discharge Plan Departure Patient Disposition: Home Clinical Impression: Acute UTI Instructions: DI for Urinary Tract Infection (UTI) Activity Restrictions/Additional Instructions: In your workup we found that you have a urinary tract infection. Antibiotics have been sent to the [facility] in [place]. Your creatinine today was 1.94 and your GFR was 27%. This is close to what you told me as your baseline. Make sure to drink plenty of fluids over the next several days and follow up with your pilot supervisor. Finish all antibiotics as prescribed, even if you feel improved. If you do not notice improvement over the next several days or you feel like your symptoms are worsening please return to the emergency department for repeat evaluation. Prescriptions: New cephalexin 500 mg capsule 500 mg PO Q12H Qty: 14 0RF No Action metoclopramide HCl [Reglan] 10 mg tablet 10 mg PO Q6H PRN (Reason: nausea and vomiting) Qty: 14 0RF ondansetron 4 mg tablet,disintegrating 4 mg PO Q8H PRN (Reason: nausea and vomiting) Qty: 10 0RF ciprofloxacin HCl 500 mg tablet 500 mg PO BID Qty: 8 0RF atorvastatin 40 mg Tablet 40 mg PO DAILY lisinopril 10 mg Tablet 10 mg PO DAILY hydrochlorothiazide 25 mg Tablet 25 mg PO DAILY Ricardo Garcia U-100 Insulin 40 units 40 units subcut BEDTIME Referrals: Miscellaneous,Doctor, MD [Primary Care Provider] - Stand Alone Forms: Patient Portal/API
[2024-03-02 23:00] LABS: Add Manual Diff / Slide Review NO; Basophils Absolute Auto 0 /uL (0-100); Basophils Percent Auto 0.3 % (0-2); Eosinophils Absolute Auto 100 /uL (0-450); Eosinophils Percent Auto 0.8 % (2-4); Hematocrit 39.3 % (36-46); Hemoglobin 13.4 g/dL (12.0-16.0); Lymphocytes Absolute Auto 1500 /uL (1100-4500); Lymphocytes Percent Auto 13.7 % (25-40); Mean Corpuscular HGB Conc 34.2 % (30-36); Mean Corpuscular Hemoglobin 30.3 PG (26-34); Mean Corpuscular Volume 88.6 fL (80-100); Monocytes Absolute Auto 800 /uL (0-900); Monocytes Percent Auto 7.2 % (3-14); Neutrophils Absolute Auto 8400 /uL (1500-7000); Platelet Count 210 X10^3/uL (150-400); Red Blood Cell Count 4.44 X10^6/uL (4.0-5.2); Red Cell Distribution Width 13.1 % (11.6-14.8); White Blood Cell Count 10.8 X10^3/uL (4.5-11.0)
[2024-03-02 23:12] LABS: Alanine Aminotransferase 20 IU/L (<35); Albumin 4.3 g/dL (3.5-5.0); Albumin Globulin Ratio 1.3 (1.0-2.8); Alkaline Phosphatase 101 U/L (38-126); Aspartate Aminotransferase 30 IU/L (14-36); BUN Creatinine Ratio 21.6 (6-22); Bilirubin Total 0.7 mg/dL (0.2-1.3); Blood Urea Nitrogen 42 mg/dL (7-17); Calcium 9.5 mg/dL (8.4-10.2); Carbon Dioxide 28 mmol/L (22-32); Chloride 104 mmol/L (98-107); Estimated Glomerular Filt Rate 27 mL/min (>60); Globulin 3.2 g/dL (1.7-4.1); Glucose 167 mg/dL (80-110); HEMOLYSIS < 15 (0-50); Sodium 137 mmol/L (137-145); Total Protein 7.5 g/dL (6.3-8.2)
[2024-03-02] MEDS: cephALEXin 250 MG CAPSULE 500 MG PO (23:51)
[2024-03-03] VITALS: BP 147/85; PULSE 98; RESP 18; TEMP 36.8; O2SAT 99
== END 2024-03-03 00:02 | disposition home or self-care (01) ==
PROVIDERS: Emergency Provider Emergency Medicine
DX: N39.0 Urinary tract infection, site not specified (principal)
CPT/HCPCS: 36415; 80053; 81003; 81015; 85025; 87077; 87086; 87186; 99283; 99284

== ENCOUNTER 2024-07-05 08:50 | Day surgery (SDC) | payer MEDICARE, OTHER, SELFPAY ==
[2023-02-16 13:00] VITALS: BMI 28.5
--- NOTE | 2024-07-05 | PATH_ITS ---
[facility] Accession Number: [id number] No. of containers..01 Tissue . 01 Material submitted: . colon - SIGMOID POLYP . 01 Diagnosis: SIGMOID COLON POLYP: Hyperplastic polyp. Additional step sections examined. [facility] 07/09/2024 1129 Local . 01 Electronically signed: . Gustavo Simental MD, PhD, Pathologist NPI- [id number] . 01 Gross description: . Received in formalin, labeled with two patient identifiers and designated sigmoid polyp, and consists of multiple ramírez-brown, irregular, friable soft tissues aggregating to 1.0 x 0.5 x 0.1 cm. The specimens are entirely submitted in cassette A1. ([id number]) /FRR 07/06/2024 1402 Local . 01 Pathologist provided ICD-10: K63.5 . 01 CPT . 823326 Specimen Comment: A courtesy copy of this report has been sent to [facility] Pathology Performed at: [address] [address], [place], [place] [id number] MD Jorge Tovar MD Phone: [phone]
[2024-07-05 09:04] VITALS: BP 151/88; PULSE 95; RESP 18; TEMP 36.6; O2SAT 98
--- NOTE | 2024-07-05 09:11 | P.HP_ITS ---
History of Present Illness History of Present Illness Date Patient Seen: 07/05/24 Time Patient Seen: 09:11 Chief complaint: Screening Colonoscopy Narrative: this is a 69-year-old white female, diabetic, who has had multiple colonoscopies in the past revealing multiple polyps. No changes in her overall health. No changes in bowel habits, no unexplained weight loss. [facility] Social History household members: spouse Smoking Status: Never smoker Comment: Diabetes, personal history of polyps, last colonoscopy 2018, hypertension Meds Home Medications and Allergies Home Medications Medication Instructions Recorded Confirmed Type Basaglar KwikPen U-100 Insulin 40 units SUBCUT BEDTIME 07/24/19 02/16/23 History atorvastatin 40 mg tablet 40 mg PO DAILY 07/24/19 02/16/23 History hydrochlorothiazide 25 mg tablet 25 mg PO DAILY 07/24/19 02/16/23 History lisinopril 10 mg tablet 10 mg PO DAILY 07/24/19 02/16/23 History metoclopramide HCl 10 mg tablet 10 mg PO Q6H PRN nausea and 02/13/23 02/16/23 Rx (Reglan) vomiting #14 tabs ondansetron 4 mg disintegrating 4 mg PO Q8H PRN nausea and 02/14/23 02/16/23 Rx tablet vomiting #10 tabs ciprofloxacin HCl 500 mg tablet 500 mg PO BID #8 tabs 02/18/23 Rx cephalexin 500 mg capsule 500 mg PO Q12H #14 caps 03/02/24 Rx sodium,potassium,mag sulfates 17.5 See Rx Instructions PO .COMPLEX 07/01/24 Rx gram-3.13 gram-1.6 gram oral soln #354 mL (Suprep Bowel Prep Kit) Allergies Allergy/AdvReac Type Severity Reaction Status Date / Time No Known Drug Allergies Allergy Verified 07/05/24 09:16 Review of Systems Review of Systems ROS: Yes All systems reviewed with the patient and are negative except as otherwise documented Constitutional Constitutional: Reports system reviewed and no additional complaints, except as documented Eyes Eyes: Reports system reviewed and no additional complaints, except as documented ENT Ears, Nose, Mouth, and Throat: Yes system reviewed and no additional complaints, except as documented Cardiovascular Cardiovascular: Reports system reviewed and no additional complaints, except as documented Respiratory Respiratory: Reports system reviewed and no additional complaints, except as documented Gastrointestinal Gastrointestinal: Reports system reviewed and no additional complaints, except as documented, Denies abdominal pain, Denies melena, Denies hematochezia, Denies change in bowel habits and Denies vomiting Genitourinary Genitourinary: Reports system reviewed and no additional complaints, except as documented Musculoskeletal Musculoskeletal: Reports system reviewed and no additional complaints, except as documented Integumentary/Breasts Skin/Breast: Reports system reviewed and no additional complaints, except as documented Neurologic Neurologic: Reports system reviewed and no additional complaints, except as documented Psychiatric Psychiatric: Reports system reviewed and no additional complaints, except as documented Exam Const General: cooperative, comfortable, well groomed and No acute distress Nutritional Appearance: overweight HENMT Head: normocephalic and atraumatic Ears: hearing grossly normal bilaterally Nose: nares normal Mouth: oral mucosae normal, oropharynx normal and moist mucous membranes Eyes General: appearance normal, both eyes and all related structures Neck Neck: normal visual inspection Chest Chest: normal inspection of the chest Resp Effort & Inspection: normal respiratory effort Auscultation: clear to auscultation bilaterally Cardio Rate: regular rate Rhythm: regular rhythm GI Palpation: soft, No guarding and No tender Skin General: no rashes or lesions noted Neuro General: patient alert, patient awake and patient oriented x3 Extrem General: normal to inspection and full ROM Psych Appearance: grossly normal and well kempt Assessment & Plan Assessment & Plan narrative: personal history of polyps Patient presents for initial screening colonoscopy Risks, benefits, alternatives to colonoscopy explained, including but not limited to bowel perforation or other serious complication requiring surgery at less than 1 in 5000 colonoscopies, abdominal pain, cramping or bleeding and less than 1% of colonoscopies, and the chances that we find a diagnosis that would require further intervention of about 2%. Patient agrees to proceed. Time-Based Coding :: [TOTAL MINUTES] spent with patient and on the chart (including review of chart, obtaining history, exam, reviewing outside data, placing orders, documenting exam and treatment plan, and counseling patient) on [DATE].
--- NOTE | 2024-07-05 10:20 | PM.OP.COLON ---
Operative Date/Time/Diagnoses Date of procedure: 07/05/24 Time of procedure: 10:21 Pre-op diagnosis: Personal history of polyps Post-op diagnosis: same ( sigmoid polyp) Procedure & Clinicians Study performed: colonoscopy with cold snare polypectomy of sigmoid polyp, approximately 12 mm in size Same procedure as scheduled: Yes Indications: personal history of polyps Surgeon: Sigifredo Sofia Procedure Notes Procedure in detail: time-out was performed. Mac was induced. Patient was placed in left lateral decubitus position. The perineum was inspected without any gross abnormality. Lubricated pediatric colonoscope was inserted and advanced to the cecum. The terminal ileum was intubated. The colonoscope was withdrawn slowly inspecting the circumference of the colon. a sessile polyp measuring approximately 12 mm in size was noted in the sigmoid colon, removed with a cold snare. Two fragments were identified in the specimen container. Appeared to be completely removed and retrieved.Very small polyps may have been missed, prep quality was adequate. Retroflexed view of the rectum showed small, non prolapsed nonbleeding internal hemorrhoids. The scope was withdrawn the patient was taken to PACU in good condition. Scope withdrawal time: 15 Sedation minutes: 26 Findings: polyp(s) ( Sessile sigmoid polyp, 12 mm) Specimen(s): other ( sigmoid polyp) Complications: none Impression: sigmoid polyp, completely removed Post-procedure Recommendations: Colonoscopy in 3 years Follow up: as needed Disposition: PACU
[2024-07-05 10:25] VITALS: BP 98/50; PULSE 76; RESP 16; TEMP 36.2; O2SAT 98
[2024-07-05 10:30] VITALS: BP 97/55; PULSE 82; RESP 16; O2SAT 98
[2024-07-05 10:40] VITALS: BP 145/75; PULSE 88; RESP 16; TEMP 36.2; O2SAT 98
== END 2024-07-05 10:43 | disposition home or self-care (01) ==
PROVIDERS: PCP Nurse Practitioner; Referring Provider Surgery; Visit Provider Surgery
PROC: 0DJD8ZZ Inspection of Lower Intestinal Tract, Via Natural or Artificial Opening Endoscopic (ICD-10-PCS; CPT 45378; principal; 2024-07-05 10:00)
DX: Z12.11 Encounter for screening for malignant neoplasm of colon (principal); Z86.0100 Personal history of colon polyps, unspecified; K63.5 Polyp of colon
CPT/HCPCS: 45385; J2704

== ENCOUNTER 2025-07-03 11:10 | Emergency (ER) | payer MEDICARE, OTHER, SELFPAY ==
[2023-02-16 13:00] VITALS: BMI 28.5
[2025-07-03 11:15] VITALS: BP 125/72; PULSE 97; RESP 18; TEMP 36.8; O2SAT 97; BMI 34.0
--- NOTE | 2025-07-03 11:22 | ED.BACK ---
HPI - Back Pain/Injury <Ledy Mitchell PA-C - Last Filed: 07/03/25 14:37> General Chief Complaint: Back Pain/Injury Stated Complaint: Back pain, seen at [facility] 3 weeks ago Time Seen by Provider: 07/03/25 11:15 Source: patient History of Present Illness HPI Narrative: Ms. Ordonez is a pleasant 70-year-old female, CKD 4, insulin-dependent DM, HTN, HLD who presents to the emergency department for right-sided low back pain with right calf numbness x3 weeks. Patient reports 40 years ago she had an injury to her low back but is not dealt with any chronic pain. Three weeks ago she was pulling weeds in the garden when she developed acute right-sided low back pain and numbness and tingling going down the right leg. She has had persistent right calf total numbness since then. She went to [facility] ER 3 weeks ago and had a lumbar x-ray and was told her L5/S1 were extremely arthritic and she need to follow up with a spine surgeon. However she is unable to get an appointment with spine surgery until August. Since then she has had worsening right-sided low back pain and it is occasionally spreading to the left glute with pins and needle sensation. She is not having any dysuria, hematuria or difficulty urinating or difficulty with bowel movements. No abdominal pain fevers or chills. She has been using Tylenol and Lidoderm for pain. She is ambulatory independently without assistance. She does wear a CGM, blood glucose has been about 200. Related Data Home Medications ?Medication ?Instructions ?Recorded ?Confirmed Basaglar KwikPen U-100 Insulin 40 units SUBCUT BEDTIME 07/24/19 02/16/23 atorvastatin 40 mg tablet 40 mg PO DAILY 07/24/19 02/16/23 hydrochlorothiazide 25 mg tablet 25 mg PO DAILY 07/24/19 07/05/24 lisinopril 10 mg tablet 10 mg PO DAILY 07/24/19 07/05/24 insulin aspart U-100 100 unit/mL SUBCUT 07/05/24 (3 mL) subcutaneous pen (Novolog FlexPen U-100 Insulin aspart) insulin degludec 100 unit/mL (3 unit SUBCUT 07/05/24 mL) subcutaneous pen (Tresiba FlexTouch U-100 insulin) Previous Rx's ?Medication ?Instructions ?Recorded metoclopramide HCl 10 mg tablet 10 mg PO Q6H PRN nausea and 02/13/23 (Reglan) vomiting #14 tabs ondansetron 4 mg disintegrating 4 mg PO Q8H PRN nausea and 02/14/23 tablet vomiting #10 tabs sodium,potassium,mag sulfates 17.5 See Rx Instructions PO .COMPLEX 07/01/24 gram-3.13 gram-1.6 gram oral soln #354 mL (Suprep Bowel Prep Kit) hydrocodone 5 mg-acetaminophen 325 1 tab PO Q4-6H PRN pain #12 tabs 07/03/25 mg tablet lidocaine 5 % topical patch 1 patch topical DAILY #30 ea 07/03/25 (Lidoderm) ondansetron 4 mg disintegrating 4 mg PO Q8H PRN nausea and 07/03/25 tablet vomiting #14 tabs Allergies Allergy/AdvReac Type Severity Reaction Status Date / Time No Known Drug Allergies Allergy Verified 07/05/24 09:16 Review of Systems <Ledy Mitchell PA-C - Last Filed: 07/03/25 14:37> Review of Systems ROS Unobtainable: All systems reviewed & are unremarkable except as noted in HPI and below Patient History <Ledy Mitchell PA-C - Last Filed: 07/03/25 14:37> Social History household members: spouse Smoking Status: Never smoker alcohol intake: never Smoking Status: Never smoker alcohol intake frequency: 0-2 drinks per day Exam <Ledy Mitchell PA-C - Last Filed: 07/03/25 14:37> Narrative Exam Narrative: GENERAL: 70 year old patient appears stated age. Well-developed patient, in no acute distress. HEAD: Atraumatic. Normocephalic. EYES: No scleral icterus. No injection or drainage. NECK: Trachea midline. Cervical ROM intact. CARDIOVASCULAR: Regular rate and rhythm. RESPIRATORY: ?Nonlabored respirations. ?Speaking in clear, full sentences. ?Clear to auscultation. Breath sounds equal bilaterally. No wheezes, rales, or rhonchi. ? GASTROINTESTINAL: Abdomen soft, non-tender, nondistended. EXTREMITIES: No LE edema or calf tenderness. Palpable PT pulses, legs are warm and well perfused, no color change. Patient reports decreased sensation on the right mid calf extending to the medial malleolus region, L4 dermatome. 5/5 bilateral knee flexion-extension strength and plantar/dorsiflexion strength. BACK: No CVA tenderness. There is diffuse tenderness in the lumbar region including midline and paralumbar, and SI joint region. Patient is able to stand and ambulate independently without footdrop. She is able to independently stand on 1 leg and flex at the hip bilaterally. NEURO: AOx3. ?Clear speech. ?Moves all 4 extremities appropriately. SKIN: No rash or erythema of visible areas Initial Vital Signs Initial Vital Signs: Vital Signs Temperature 98.2 F 07/03/25 11:15 Pulse Rate 97 H 07/03/25 11:15 Respiratory Rate 18 07/03/25 11:15 Blood Pressure 125/72 07/03/25 11:15 Pulse Oximetry 97 07/03/25 11:15 Oxygen Delivery Method Room Air 07/03/25 11:15 <Annie Blake DO - Last Filed: 07/03/25 18:53> Initial Vital Signs Initial Vital Signs: Vital Signs Temperature 98.2 F 07/03/25 11:15 Pulse Rate 97 H 07/03/25 11:15 Respiratory Rate 18 07/03/25 11:15 Blood Pressure 125/72 07/03/25 11:15 Pulse Oximetry 97 07/03/25 11:15 Oxygen Delivery Method Room Air 07/03/25 11:15 Course <Ledy Mitchell PA-C - Last Filed: 07/03/25 14:37> Orders Ordered: ED Orders 07/03/25 11:35 CT lumbar spine wo con Stat 07/03/25 11:40 Urine Microscopic Stat Discontinued Medications Hydrocodone Bitart/Acetaminophen (Hydrocodone/Acet 5/325 Tablet) 1 tab PO NOW ONE Stop: 07/03/25 11:36 Last Admin: 07/03/25 11:45 Dose: 1 tab Documented By: MATT Ondansetron HCl (Ondansetron 4 Mg Odt) 4 mg SL NOW ONE Stop: 07/03/25 11:36 Last Admin: 07/03/25 11:45 Dose: 4 mg Documented By: MATT Vital Signs Vital signs: Vital Signs - 8 hr 07/03/25 11:15 07/03/25 13:46 Temperature 98.2 F 98.1 F Pulse Rate 97 H 79 Respiratory Rate 18 16 Blood Pressure 125/72 118/66 Pulse Oximetry 97 95 Oxygen Delivery Method Room Air Room Air <Annie Blake DO - Last Filed: 07/03/25 18:53> Orders Ordered: ED Orders 07/03/25 11:35 CT lumbar spine wo con Stat 07/03/25 11:40 Urine Microscopic Stat Discontinued Medications Hydrocodone Bitart/Acetaminophen (Hydrocodone/Acet 5/325 Tablet) 1 tab PO NOW ONE Stop: 07/03/25 11:36 Last Admin: 07/03/25 11:45 Dose: 1 tab Documented By: MATT Ondansetron HCl (Ondansetron 4 Mg Odt) 4 mg SL NOW ONE Stop: 07/03/25 11:36 Last Admin: 07/03/25 11:45 Dose: 4 mg Documented By: MATT Vital Signs Vital signs: Vital Signs - 8 hr 07/03/25 11:15 07/03/25 13:46 Temperature 98.2 F 98.1 F Pulse Rate 97 H 79 Respiratory Rate 18 16 Blood Pressure 125/72 118/66 Pulse Oximetry 97 95 Oxygen Delivery Method Room Air Room Air MDM - Back Pain/Injury <Ledy Mitchell PA-C - Last Filed: 07/03/25 14:37> Medical Records Attestation: I reviewed the patient's medical records. Lab Data Labs: Lab Results 07/03/25 Range/Units 11:40 Urine RBC None seen (0-5/HPF) Urine WBC 0-1/hpf (0-5/HPF) Ur Squamous Epith Cells 1-5 /hpf (0-5/HPF) Urine Bacteria None seen (None) Ur Culture Indicated? Cult not indicated Vol Urine Centrifuged 10ml (spun) Urine Dip Bedside Urine Glucose 1000 mg/dl Bedside Urine Bilirubin - Negative Bedside Urine Ketone - Negative Urine Specific [place] 1.015 Bedside Urine Occult Blood - Negative Bedside Urine pH 5.5 Bedside Urine Protein +/- 15 Bedside Urine Urobilinogen - Negative Bedside Urine Nitrite - Negative Bedside Urine Leukocytes - Negative Esterase Imaging Data CT Lumbar: Radiologist's Impression: PROCEDURE: CT LUMBAR SPINE WO CON INDICATIONS: low back pain; R leg radiculopathy TECHNIQUE: Noncontrast 3 mm thick sections acquired from the T12 level to the sacrum. Sagittal and coronal reformats were constructed. For radiation dose reduction, the following was used: automated exposure control. COMPARISON: [facility], CT, CT ABDOMEN PELVIS W CON, 02/16/2023, 7:40. [facility], CR, XR LUMBAR SPINE 2 OR 3 VIEWS, 05/23/2025, 14:08. FINDINGS: Image quality: Excellent. Bones: There is normal bony alignment. No acute vertebral body compression fractures. Throat, mild T11 and T12 anterior wedge deformities are seen which are similar to 2023. No suspicious lytic or blastic bony lesions. No pars defects. T12-L1: Normal. L1-L2: Normal. L2-L3: No significant abnormality is seen. L3-L4: There is as well preserved. Mild generalized disc bulge is seen. No significant neural foraminal or central canal narrowing can be seen. L4-L5: The disc height is well preserved. Moderate generalized disc bulge is seen. There is a superimposed central disc protrusion. Moderate facet joint hypertrophy is seen. Associated hypertrophy of the ligamentum flavum can be seen. There is at least moderate left-sided and moderate right-sided neural foraminal narrowing. Moderate central canal narrowing is seen. L5-S1: The disc height is well preserved. Mild generalized disc bulge is seen. Moderate facet joint hypertrophy is seen. No significant neural foraminal or central canal narrowing can be seen. Soft tissues: No retroperitoneal masses or hematomas. Visualized aorta is normal in caliber. Atherosclerotic calcification is noted. A small hiatal hernia is incidentally noted. Cholecystectomy clips are seen. IMPRESSION: Lumbar spine degenerative changes are seen which are worst involving the L4-L5 level. If it would be helpful for clinical management decision making, please consider a dedicated, scheduled lumbar spine MRI for further evaluation (assuming that there is no contraindication). Remote, stable anterior wedge deformities of T11 and T12 can be seen without significant change compared to the 2022 CT. Additional findings: Small hiatal hernia Cholecystectomy clips Dictated by: Checo Sadler M.D. on 07/03/2025 at 11:03 Approved by: Checo Sadler M.D. on 07/03/2025 at 11:07 MDM Narrative Medical decision making narrative: 70-year-old female, CKD 4, insulin-dependent DM, HTN, HLD who presents to the emergency department for right-sided low back pain with right calf numbness x3 weeks. Differential diagnosis includes but is not limited to lumbar radiculopathy, spinal stenosis, UTI, L4 compression, compression fracture, etc. On exam patient is in no acute distress, nontoxic appearing, vital signs appropriate except for mildly elevated heart rate in triage 97. Patient is experiencing 3 weeks of right lumbar radiculopathy with persistent right calf numbness. She is ambulatory, has no bowel or bladder incontinence, no saddle anesthesia, she is able to ambulate independently. 5/5 bilateral knee flexion/extension strength, plantar/dorsiflexion strength. Discussed case with the attending MD. We will obtain CT lumbar spine, treat pain with hydrocodone at this time and obtain urinalysis. CT reveals lumbar spine degenerative changes which are worse involving L4-L5 where there is moderate neural foraminal narrowing and moderate canal narrowing. UA reveals no infection. Patient feels much better after ED treatment. She is ambulatory and neurovascularly intact. Printed discussed CT results recommended follow up with PCP for physical therapy and to follow up with spine surgery in August. Discussed ER return precautions, narcotic risks. Recommended Tylenol, Lidoderm, heat, ice, stretching [id number] pain and hydrocodone for severe breakthrough pain. Patient verbalized understanding of all information agreeable with the plan. She is ambulatory and stable for discharge home with her who can drive her. <Annie Blake, DO - Last Filed: 07/03/25 18:53> Lab Data Labs: Lab Results 07/03/25 Range/Units 11:40 Urine RBC None seen (0-5/HPF) Urine WBC 0-1/hpf (0-5/HPF) Ur Squamous Epith Cells 1-5 /hpf (0-5/HPF) Urine Bacteria None seen (None) Ur Culture Indicated? Cult not indicated Vol Urine Centrifuged 10ml (spun) Urine Dip Bedside Urine Glucose 1000 mg/dl Bedside Urine Bilirubin - Negative Bedside Urine Ketone - Negative Urine Specific [place] 1.015 Bedside Urine Occult Blood - Negative Bedside Urine pH 5.5 Bedside Urine Protein +/- 15 Bedside Urine Urobilinogen - Negative Bedside Urine Nitrite - Negative Bedside Urine Leukocytes - Negative Esterase Discharge Plan Departure Patient Disposition: Home Clinical Impression: DDD (degenerative disc disease), lumbar Qualifiers: Disc-related pain type: discogenic back pain and lower extremity pain Qualified Code(s): M51.362 - Other intervertebral disc degeneration, lumbar region with discogenic back pain and lower extremity pain Instructions: DI for Back Pain With Sciatica Activity Restrictions/Additional Instructions: Dear Ms. Ordonez, Thank you for coming to the emergency department. Today you were evaluated for low back pain and leg numbness. CT scan of your low back revealed a disc degenerative changes that are worse at the L4-L5 level. I would like you to follow up with your primary care doctor for physical therapy and a spine surgeon for further management. Please rest, use heat and ice, lidocaine patches, Tylenol, muscle relaxers and hydrocodone as needed for breakthrough for severe pain. Return to the ER immediately if you develop severe pain, inability to walk, fevers, difficulty using the bathroom or any other concerns. You have been prescribed a short course of narcotic medications. These are potentially dangerous and addictive medications that should be used carefully. While on these medications you cannot drive or operate heavy machinery. Additionally, you cannot sign legal documents or perform any duties such as this. 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 Please understand that we cannot provide further refills of narcotics or controlled substances through the ED and your pain management will need to be through your Primary Care Provider Please follow up with your primary care doctor within the next 2-3 days for ER follow-up. (If you do not have a PCP you can call [phone]. ?to schedule an appointment with an [facility] Primary Care Provider) IF YOU DEVELOP ANY NEW OR WORSENING SYMPTOMS, RETURN TO THE ER! Please read the attached instructions, they highlight more specific treatments and interventions for you at home. Thank you for letting me participate in your care, Ledy Mitchell PA-C Prescriptions: New lidocaine [Lidoderm] 5 % adhesive patch,medicated 1 patch topical DAILY Qty: 30 0RF Rx Instructions: leave on most painful area for up to 12 hrs hydrocodone-acetaminophen 5-325 mg tablet 1 tab PO Q4-6H PRN (Reason: pain) Qty: 12 0RF ondansetron 4 mg tablet,disintegrating 4 mg PO Q8H PRN (Reason: nausea and vomiting) Qty: 14 0RF No Action sodium,potassium,mag sulfates [Suprep Bowel Prep Kit] 17.5-3.13-1.6 gram recon soln See Rx Instructions PO .COMPLEX Qty: 354 0RF Rx Instructions: take as directed by Physician metoclopramide HCl [Reglan] 10 mg tablet 10 mg PO Q6H PRN (Reason: nausea and vomiting) Qty: 14 0RF ondansetron 4 mg tablet,disintegrating 4 mg PO Q8H PRN (Reason: nausea and vomiting) Qty: 10 0RF insulin aspart U-100 [Novolog FlexPen U-100 Insulin] 100 unit/mL (3 mL) insulin pen SUBCUT Patient Comments: [NO ORIGINAL SIG] insulin degludec [Tresiba FlexTouch U-100] 100 unit/mL (3 mL) insulin pen SUBCUT Patient Comments: [NO ORIGINAL SIG] atorvastatin 40 mg Tablet 40 mg PO DAILY lisinopril 10 mg Tablet 10 mg PO DAILY hydrochlorothiazide 25 mg Tablet 25 mg PO DAILY Basaglar KwikPen U-100 Insulin 40 units 40 units subcut BEDTIME Referrals: Bhargavi Nguyen, FASHION EDITOR [Primary Care Provider, Nursing] Stand Alone Forms: Patient Portal/API ED Sign-out <Annie Blake DO - Last Filed: 07/03/25 18:53> Cosign ED Attending Cuauhtemocature Attestation: I was immediately available in the department for consultation.
--- NOTE | 2025-07-03 11:35 | DI.CT.S_ITS ---
PROCEDURE: CT LUMBAR SPINE WO CON INDICATIONS: low back pain; R leg radiculopathy TECHNIQUE: Noncontrast 3 mm thick sections acquired from the T12 level to the sacrum. Sagittal and coronal reformats were constructed. For radiation dose reduction, the following was used: automated exposure control. COMPARISON: [facility], CT, CT ABDOMEN PELVIS W CON, 02/16/2023, 7:40. [facility], CR, XR LUMBAR SPINE 2 OR 3 VIEWS, 05/23/2025, 14:08. FINDINGS: Image quality: Excellent. Bones: There is normal bony alignment. No acute vertebral body compression fractures. Throat, mild T11 and T12 anterior wedge deformities are seen which are similar to 2023. No suspicious lytic or blastic bony lesions. No pars defects. T12-L1: Normal. L1-L2: Normal. L2-L3: No significant abnormality is seen. L3-L4: There is as well preserved. Mild generalized disc bulge is seen. No significant neural foraminal or central canal narrowing can be seen. L4-L5: The disc height is well preserved. Moderate generalized disc bulge is seen. There is a superimposed central disc protrusion. Moderate facet joint hypertrophy is seen. Associated hypertrophy of the ligamentum flavum can be seen. There is at least moderate left-sided and moderate right-sided neural foraminal narrowing. Moderate central canal narrowing is seen. L5-S1: The disc height is well preserved. Mild generalized disc bulge is seen. Moderate facet joint hypertrophy is seen. No significant neural foraminal or central canal narrowing can be seen. Soft tissues: No retroperitoneal masses or hematomas. Visualized aorta is normal in caliber. Atherosclerotic calcification is noted. A small hiatal hernia is incidentally noted. Cholecystectomy clips are seen. IMPRESSION: Lumbar spine degenerative changes are seen which are worst involving the L4-L5 level. If it would be helpful for clinical management decision making, please consider a dedicated, scheduled lumbar spine MRI for further evaluation (assuming that there is no contraindication). Remote, stable anterior wedge deformities of T11 and T12 can be seen without significant change compared to the 2022 CT. Additional findings: Small hiatal hernia Cholecystectomy clips Dictated by: Checo Sadler M.D. on 07/03/2025 at 11:03 Approved by: Checo Sadler M.D. on 07/03/2025 at 11:07
[2025-07-03] MEDS: ONDANSETRON 4 MG ODT SL (11:45)
[2025-07-03 12:21] LABS: Culture Indicated Urine Cult Not Indicated
[2025-07-03 13:46] VITALS: BP 118/66; PULSE 79; RESP 16; TEMP 36.7; O2SAT 95
== END 2025-07-03 14:40 | disposition home or self-care (01) ==
PROVIDERS: Emergency Provider Physician Assistant; PCP Nurse Practitioner
DX: M51.362 Other intervertebral disc degeneration, lumbar region with discogenic back pain and lower extremity pain (principal)
CPT/HCPCS: 72131; 81003; 81015; 99283; 99284